=== PATIENT | female | born 1985 | race Caucasian/White ===

== ENCOUNTER → 2020-11-27 11:06 | Outpatient (CLI) | payer OTHER, SELFPAY ==
--- NOTE | ~2020-11-27 | CT_ITS ---
EXAMINATION: CT diagnostic chest wo con DATE: 11/27/2020 11:21 INDICATION: Solitary pulmonary nodule. TECHNIQUE: Computed tomography (CT) of the chest was performed without intravenous contrast. The dose -length product (DLP) was 50.12 mGy-cm. Automated exposure control and iterative reconstruction techn ique were employed. COMPARISON: None FINDINGS: There is a 7 mm groundglass nodule of the right lower lobe on image 93. There is a 4 mm sub pleural nodule of the right lower lobe on image 55. No focal airspace opacities are identified. There is no pleural effusion or pneumothorax. No pathologically enlarged thoracic lymph nodes are identifi ed. The heart size is normal. The visualized osseous structures are unremarkable. IMPRESSION: 1. Pulmonary nodules as described above, probably benign. Follow-up low-dose CT in 12 months is recom mended. Reviewed, dictated and finalized at location A. CONSERVATION SPECIALIST IMPRESSION: 1. Pulmonary nodules as described above, probably benign. Follow-up low-dose CT in 12 months is recommended.
--- NOTE | ~2020-11-27 | US_ITS ---
US thyroid INDICATION: Thyroid goiter TECHNIQUE: Real-time sonographic images of the thyroid gland were obtained. COMPARISON: No prior studies for comparison. FINDINGS: The right thyroid lobe measures 5.6 x 2 x 1.6 cm. The left thyroid lobe measures 5.7 x 2 x 1.7 cm. There is normal echotexture and echogenicity throughout the thyroid gland. No discrete nodul es identified. Normal vascular flow is present. IMPRESSION: 1. Enlarged thyroid gland without discrete mass. Reviewed, dictated and finalized at location B. R SITE ASSESSMENT SPECIALIST
== END ==
PROVIDERS: PCP Physician Assistant; Visit Provider Physician Assistant
DX: R91.1 Solitary pulmonary nodule (principal); R91.8 Other nonspecific abnormal finding of lung field
CPT/HCPCS: 71250; 76536

== ENCOUNTER 2021-04-22 17:14 | Emergency (ER) | payer OTHER, SELFPAY ==
[2021-04-22] VITALS (14 sets, daily range): BP systolic 107–127; BP diastolic 65–84; PULSE 90–93; RESP 16–18; O2SAT 99–100
[2021-04-22 18:20] LABS: Basophils Percent Auto 0.2 % (0.2-1.2); Eosinophils Percent Auto 0.2 % (0-4.4); Hematocrit 39.9 % (37.0-47.0); Hemoglobin 13.5 g/dL (12.0-15.0); Immature Granulocyte Absolute 0.04 K/mm3 (0.00-0.031); Immature Granulocyte Percent A 0.3 % (0-0.5); Lymphocytes Percent Auto 10.6 % (18.3-44.2); Mean Corpuscular HGB Conc 33.8 g/dl (32-36); Mean Corpuscular Hemoglobin 29.9 pg (26-34); Mean Corpuscular Volume 88.3 fl (80-100); Mean Platelet Volume 10.3 fl (7.4-10.4); Monocytes Absolute Auto 0.5 K/mm3 (0.1-0.6); Monocytes Percent Auto 4.3 % (2.6-8.5); Neutrophils Absolute Auto 10.4 K/mm3 (1.3-6.7); Neutrophils Percent Auto 84.4 % (45.5-73.1); Platelet Count Result 188 k/mm3 (150-375); Red Blood Count 4.52 M/mm3 (4.2-5.4); Red Cell Distribution Width 12.1 % (11.5-14.5); White Blood Count 12.3 K/mm3 (4.5-10.0)
--- NOTE | 2021-04-22 18:28 | PC.NURSE ---
Bedside preg. test was positive at 18:28
[2021-04-22 18:30] LABS: Alanine Aminotransferase 18 U/L (4-35); Albumin Level 4.6 g/dL (3.5-5.1); Alkaline Phosphatase 50 U/L (38-126); Anion Gap 9 mmol/L (8-16); Aspartate Amino Transferase 23 U/L (14-36); Bilirubin,Total 0.5 mg/dL (0.2-1.3); Blood Urea Nitrogen 10 mg/dL (7-17); Calcium 9.4 mg/dL (8.4-10.2); Carbon Dioxide 23 mmol/L (22-30); Chloride 105 mmol/L (98-107); Estimated CRCL calculation 118 ml/min; Estimated Glomerular Filt Rate > 60; Glucose 89 mg/dL (65-105); Lipase 66 U/L (23-300); Potassium 3.9 mmol/L (3.4-5.0); Sodium 137 mmol/L (137-145)
[2021-04-22 18:56] LABS: Add Urine Microscopic? YES; Appearance Urine Cloudy (Clear); Bacteria Urine Trace /hpf; Bilirubin Urine Negative (Negative); Blood Urine Negative (Negative); Color Urine Yellow (Yellow); Glucose Urine UA Negative (Negative); Ketones Urine 1+ mg/dL (Negative); Leukocyte Esterase Ur Negative LEU/UL (Negative); Mucus Urine Few /lpf; Nitrate Urine Negative (Negative); Protein Urine 1+ mg/dL (Negative); Specific Grav Ur 1.027 (1.001-1.035); Squamous Epithelial Cell Urine Moderate /hpf (Few); Urobilinogen Urine Negative mg/dL (<2.0)
[2021-04-22] MEDS: METOCLOPRAMIDE HCL INJ 10 MG/2 ML VIAL 5 MG IV PUSH (21:17)
[2021-04-22] MEDS: DEXTROSE 5%/LACTATED RINGERS 1,000 ML 999 ML IV CONT (21:17)
--- NOTE | 2021-04-22 21:55 | ED.GENADULT ---
HPI - General Adult General Chief complaint: Nausea/Vomiting/Diarrhea Stated complaint: nausea/vomiting, 7 weeks preg Time Seen by Provider: 04/22/21 20:45 Source: patient Mode of arrival: ambulatory Limitations: no limitations History of Present Illness HPI narrative: 35 4 para 2 presently 7 weeks here with complaints of nausea, vomiting for past few days. Patient states that she feels extremely weak and dizzy at times. She denies any vaginal bleeding or discharge. No history of fever or chills. Patient states that she was given Zofran but however was unable to take this morning as she was extremely nauseated. She also complains of lower abdominal cramping once in a while. Onset (ago): day(s) (2) Severity: moderate Exacerbating factors: none Associated symptoms: headaches Related Data Allergies Allergy/AdvReac Type Severity Reaction Status Date / Time prednisone AdvReac Agitated Verified 04/22/21 20:28 Review of Systems Review of Systems: All systems reviewed & are unremarkable except as noted in HPI and below Constitutional: Constitutional: Reports no additional constitutional complaints Eyes: Eyes: Reports no additional eye complaints ENT: Reports system reviewed and no additional complaints, except as documented Cardiovascular: Cardiovascular: Reports no additional cardiovascular complaints Respiratory: Respiratory: Reports no additional respiratory complaints Gastrointestinal: Gastrointestinal: Reports as per HPI Musculoskeletal: Musculoskeletal: Reports no additional musculoskeletal complaints PMFSH Social History Social History Gender identity (if verbalized by the patient): Female Exam Narrative: Exam Narrative: GENERAL: Well-appearing, well-nourished, and in no acute distress. HEAD: Normocephalic, atraumatic. EYES: PERRLA and EOMI. NECK: Supple. CHEST: Clear to auscultation. No respiratory distress. HEART: Regular rate and rhythm. No murmur heard. Normal peripheral pulses. ABDOMEN: Soft, nontender, nondistended, normal active bowel sounds. EXTREMITIES: Normal range of motion. No edema. SKIN: Warm, dry, no rash. NEURO: No focal deficits. Alert and oriented x3. PSYCH: Normal mood and affect. Course Course Emergency Course: Patient received 1 L of D5 LR, IV Reglan. After the fluids patient states that she is feeling much better. Headache is resolved. Advised her to continue Zofran, follow-up with her OB. She does feel comfortable going home. Vital Signs Vital signs: Vital Signs Pulse Rate 90 04/22/21 17:37 Respiratory Rate 18 04/22/21 17:37 Blood Pressure 127/84 04/22/21 17:37 Pulse Oximetry 100 04/22/21 17:37 Pulse Rate 93 04/22/21 20:25 Respiratory Rate 16 04/22/21 20:25 Blood Pressure 119/76 04/22/21 20:25 Pulse Oximetry 100 04/22/21 20:25 Medical Decision Making Vital Signs Vital Signs: Vital Signs Pulse Rate 90 04/22/21 17:37 Respiratory Rate 18 04/22/21 17:37 Blood Pressure 127/84 04/22/21 17:37 Pulse Oximetry 100 04/22/21 17:37 Pulse Rate 93 04/22/21 20:25 Respiratory Rate 16 04/22/21 20:25 Blood Pressure 119/76 04/22/21 20:25 Pulse Oximetry 100 04/22/21 20:25 Lab Data Result diagrams: 04/22/21 18:10 04/22/21 18:10 Labs: Lab Results 04/22/21 04/22/21 04/22/21 Range/Units 18:10 18:10 18:27 WBC 12.3 H (4.5-10.0) K/mm3 RBC 4.52 (4.2-5.4) M/mm3 Hgb 13.5 (12.0-15.0) g/dL Hct 39.9 (37.0-47.0) % MCV 88.3 (80-100) fl MCH 29.9 (26-34) pg MCHC 33.8 (32-36) g/dl RDW 12.1 (11.5-14.5) % Plt Count 188 (150-375) k/mm3 MPV 10.3 (7.4-10.4) fl Immature Gran % (Auto) 0.3 (0-0.5) % Neut % (Auto) 84.4 H (45.5-73.1) % Lymph % (Auto) 10.6 L (18.3-44.2) % Graham % (Auto) 4.3 (2.6-8.5) % Eos % (Auto) 0.2 (0-4.4) % Baso % (Auto) 0.2 (0.2-1.2) %
== END 2021-04-22 22:11 | disposition home or self-care (01) ==
PROVIDERS: Emergency Provider Family Medicine; PCP Physician Assistant
DX: O21.0 Mild hyperemesis gravidarum (principal); Z3A.01 Less than 8 weeks gestation of pregnancy
CPT/HCPCS: 36415; 80053; 81001; 83690; 85025; 96361; 96374; 99284; J2765; J7121

== ENCOUNTER 2023-02-09 12:44 | Outpatient (CLI) | payer OTHER, SELFPAY ==
--- NOTE | ~2023-02-09 | CT_ITS ---
CT Scan of the Chest without Contrast: Clinical Indication: Lung nodules Technique: Contiguous sections were acquired throughout the chest without intravenous contrast. Dose reduction technique was used on this scan by utilizing automated exposure control and iterative recon struction technique. The dose-length product (DLP) was 43.17 mGy-cm. COMPARISON: 11/27/2020 Findings: There is no evidence of any significant mediastinal, hilar or axillary lymphadenopathy. The mediastin al soft tissues appear normal. There is no evidence of pleural or pericardial effusion. Stable 5 mm probably semisolid pulmonary nodule at the peripheral right lower lobe (axial image 90). Stable 4 mm pleural-based nodule at the medial right lower lobe (axial image 55). Images through the upper abdomen reveal no abnormalities. Impression: Stable pulmonary nodules, as detailed above. Stability over this time interval suggests benignity. Reviewed, dictated and finalized at [facility]. Impression: Stable pulmonary nodules, as detailed above. Stability over this time interval suggests benignity.
--- NOTE | ~2023-02-09 | US_ITS ---
EXAMINATION: US thyroid DATE: 02/09/2023 13:55 INDICATION: Nontoxic goiter. TECHNIQUE: Multiple ultrasound images of the thyroid were obtained. COMPARISON: Ultrasound 11/27/2020 FINDINGS: The right thyroid lobe measures 5.7 x 1.7 x 2.1 cm. The left thyroid lobe measures 5.1 x 1.5 x 2.0 c m. There is normal echotexture and echogenicity throughout the thyroid gland. No discrete nodules id entified. Normal vascular flow is present. IMPRESSION: 1. Normal thyroid. Reviewed, dictated and finalized at location A. IMPRESSION: 1. Normal thyroid.
--- NOTE | ~2023-02-09 | MR_ITS ---
EXAMINATION: MR brain/brain stem wo/w con DATE: 02/09/2023 13:35 INDICATION: Headache. TECHNIQUE: Magnetic resonance imaging (MRI) of the brain and brainstem was performed without and with 13 mL MultiHance intravenous contrast. COMPARISON: None. FINDINGS: There are four foci of increased T2-weighted signal intensity in the cerebral white matter, which is normal for the patient's age. There is no intracranial hemorrhage, acute infarction, or abn ormal intracranial mass lesion. The ventricles are normal in size. The orbits are normal. The mastoid air cells are normal. The paranasal sinuses are clear. IMPRESSION: 1. Normal brain. Reviewed, dictated and finalized at location A. IMPRESSION: 1. Normal brain.
== END 2023-02-09 12:45 ==
PROVIDERS: PCP Physician Assistant; Visit Provider Physician Assistant
DX: R91.8 Other nonspecific abnormal finding of lung field (principal); E04.9 Nontoxic goiter, unspecified; R51.9 Headache, unspecified
CPT/HCPCS: 70553; 71250; 76536; A9577

== ENCOUNTER 2023-12-26 08:03 | Outpatient (CLI) | payer OTHER, SELFPAY ==
--- NOTE | ~2023-12-26 | US_ITS ---
Abdominal Sonogram: Real-time sonographic imaging of the abdomen was performed. Clinical History: Abdominal pain Findings: The liver appears normal with no evidence of mass lesion or bile duct dilatation. Main por arti vein demonstrates normal direction of flow. The spleen is normal in size without evidence of foca l lesion. The gallbladder is well distended, and appears normal with no evidence of gallstone or wal l thickening. The common bile duct measures 5 mm. The visualized pancreas, aorta, and IVC are unrema rkable. The right kidney measures 11.7 cm in length and the left kidney measures 11.5 cm. There is no hydronephrosis or renal calculus. Impression: Unremarkable abdominal ultrasound. Reviewed, dictated and finalized at location . Impression: Unremarkable abdominal ultrasound.
== END 2023-12-26 08:04 ==
PROVIDERS: PCP Physician Assistant; Visit Provider Physician Assistant
DX: R10.9 Unspecified abdominal pain (principal)
CPT/HCPCS: 76700

== ENCOUNTER 2024-06-12 07:49 | Outpatient (CLI) | payer OTHER, SELFPAY ==
--- NOTE | ~2024-06-12 | NM_ITS ---
EXAM: NM gastric emptying study DATE: 06/12/2024 12:47 INDICATION: Right upper quadrant abdominal pain TECHNIQUE: A gastric emptying study was performed using the methodology of Pito DAVID, et al. J Nucl Med 2007; 48:568-572. The patient was given a meal consisting of 2 scrambled eggs labeled with 0.911 mCi Tc-99m sulfur colloid, 2 slices of toast, two packages of jam, and approximately 120 mL of water . Simultaneous anterior and posterior 1-min images of the abdomen were obtained with the patient supi ne at multiple time points over a total period of 4 hours. The geometric mean of anterior and posteri or views was determined, and the percentage retention was calculated for each time point. COMPARISON: None. FINDINGS: Gastric retention of the radiotracer-labeled meal was 45%, 23%, and 4% at the 1-hour, 2-hour, and 4-h our time points, respectively. With this technique, apparent rapid gastric emptying is suggested by < 30% gastric retention at 1 hour. Delayed gastric emptying is defined by gastric retention of >90% at 1 hour, >60% retention at 2 hours, or >10% retention at 4 hours. IMPRESSION: 1. Normal gastric emptying. Reviewed, dictated and finalized at location A. IMPRESSION: 1. Normal gastric emptying.
== END 2024-06-12 07:50 | disposition home or self-care (01) ==
PROVIDERS: PCP Physician Assistant; Visit Provider Physician Assistant
DX: R10.11 Right upper quadrant pain (principal)
CPT/HCPCS: 78264; A9541

== ENCOUNTER 2024-06-14 08:49 | Outpatient (CLI) | payer OTHER, SELFPAY ==
--- NOTE | ~2024-06-14 | NM_ITS ---
EXAMINATION: NM hepatobiliary wo pharm DATE: 06/14/2024 11:49 INDICATION: Right upper quadrant abdominal pain COMPARISON: None. TECHNIQUE: 4.7 mCi Tc-99m mebrofenin (Choletec) was administered intravenously. Scintigraphic images of the abdomen were obtained for one hour. At the 1 hour time point, the patient drank 8 oz Ensure, and imaging was continued for 60 minutes. Gallbladder ejection fraction was calculated by the technol ogist. FINDINGS: There is normal clearance of radiotracer from the blood pool. There is homogeneous tracer u ptake by the liver. Activity progresses to the bowel and gallbladder. The gallbladder ejection fract ion (GBEF) is 29%. Note that with this technique, normal GBEF >= 33%. IMPRESSION: 1. Gallbladder ejection fraction below the normal range which could be seen with gallbladder dysfunc tion or chronic cholecystitis in the appropriate clinical setting. Reviewed, dictated and finalized at location A. IMPRESSION: 1. Gallbladder ejection fraction below the normal range which could be seen wi th gallbladder dysfunction or chronic cholecystitis in the appropriate clinical setting.
== END 2024-06-14 08:50 | disposition home or self-care (01) ==
LOC: ANHIMG 08:52
PROVIDERS: PCP Physician Assistant; Visit Provider Physician Assistant
DX: R93.2 Abnormal findings on diagnostic imaging of liver and biliary tract (principal); R10.11 Right upper quadrant pain
CPT/HCPCS: 78226; A9537

== ENCOUNTER 2024-11-15 08:59 | Outpatient (CLI) | payer OTHER, SELFPAY ==
--- NOTE | ~2024-11-15 | US_ITS ---
US right upper quadrant INDICATION: Right upper quadrant pain PROCEDURE: Realtime right upper abdominal ultrasound. COMPARISON: Ultrasound dated 12/26/2023 FINDINGS: The pancreas is normal without focal mass or pancreatic ductal dilation. Liver echotexture is normal without focal mass or intrahepatic biliary dilatation. There is normal directional flow i n the portal vein. The gallbladder is normal without stones, gallbladder wall thickening or pericholecystic fluid. Comm on bile duct measures 4 mm. No sonographic Skinner's sign. IMPRESSION: 1: Normal limited abdominal ultrasound. Reviewed, dictated and finalized at location A. NE MECHANIC
== END 2024-11-15 09:00 | disposition home or self-care (01) ==
LOC: GOSHIMG 09:00
PROVIDERS: PCP Surgery; Visit Provider Surgery
DX: R10.11 Right upper quadrant pain (principal); K21.9 Gastro-esophageal reflux disease without esophagitis; K82.8 Other specified diseases of gallbladder
CPT/HCPCS: 76705

== ENCOUNTER 2024-11-19 07:23 | Day surgery (SDC) | payer OTHER, SELFPAY ==
[2024-11-09 08:59] VITALS: BMI 21.7
--- NOTE | 2024-11-18 06:01 | P.PNAN_ITS ---
Anes - Initial Pre Proc Eval Procedure: Operation Date: 11/19/24 09:30 Proposed Procedures p Esophagogastroduodenoscopy - Tato López DO Date/Time: 11/18/24 06:01 Surgeon: Tato López DO Pre Op Diagnosis: Right Upper Quadrant Pain Patient Data Age: 39 Gender: F Height: 1.78 m Weight: 66 kg Allergies Allergy/AdvReac Type Severity Reaction Status Date / Time prednisone AdvReac Agitated Verified 11/19/24 08:24 Home Medications ?Medication ?Instructions ?Recorded ?Confirmed ?Type buspirone 5 mg tablet 5 mg PO BID 11/09/24 11/14/24 History escitalopram oxalate 5 mg tablet 5 mg PO DAILY 11/09/24 11/14/24 History (Lexapro) levomefolate 7.5 mg-algal oil 1 cap PO DAILY 11/09/24 11/14/24 History 90.314 mg capsule (L-Methylfolate Forte) hydroxyzine HCl 25 mg tablet 25 mg PO DIRECTED PRN anxiety 11/14/24 11/14/24 History Patient hx anesthesia problems: none Family hx anesthesia problems: none Results Review: All pre-operative results and documents have been reviewed as part of the pre- operative evaluation. [facility] Past Medical History Medical History (Updated 11/18/24 @ 06:01 by Benjamín Miller DO) Acid reflux Biliary dyskinesia Anxiety Family History Family History Other Hypertension Lung cancer Social History Social History (Updated 11/09/24 @ 08:28 by Alexandria Ferraro CMA) Smoking status: Current every day smoker Tobacco type: cigarettes Alcohol intake: former Do You Feel Safe in your Home?: Yes Lack of Transportation: No Lack of Food: Never True Current Housing: I Have Housing Concerned About Future Housing: No Difficulty Paying Gas/Electric Bills: No Difficulty Paying for Meds: No Currently Unemployed: No Education: Trade/Vocational Certificate Difficulty w/ Childcare or Family Care: No Living arrangements: with family Gender identity (if verbalized by the patient): Female Anes - Eval Final PreProcedure Day of Procedure 11/18/24 06:01 Patient weight: normal Heart: regular rate and rhythm Lungs: clear to auscultation and normal air movement Airway: Mallampati scale class II Neurological: alert and oriented Last oral intake: >/= 8 hours ASA classification: II Emergent: no Anesthetic plan: proceed Anesthesia type and monitoring: general GIVS and standard monitoring Results Review: All pre-operative results and documents have been reviewed as part of the pre- operative evaluation. Informed Consent: The patient's anesthetic plan and its attendant risks and benefits were discussed with the patient/family/POA. Questions were solicited and answers pr ovided to the satisfaction of the patient/family/POA.
--- OUTSIDE RECORDS SUMMARY | 2024-11-19 08:11 | XMS_ITS | Referral Summary ---
Author Organization [facility] Address [address] [place] [address] Care Team Providers Care Director Enterprise Sales Name Role Phone Unavailable Primary Care Provider Unavailabl e Source Comments [facility],non-owned Affiliates and Associated Physician Practices is amultiple site organization consisting of ambulatory clinics and hospital sitesin [place], [place], [place] and [place]. This disclosure is being madepursuant to the Care Everywhere program and may not contain all information available regarding this patient. Last updated 18.[facility] [employer] Social History Tobacco Use Types Packs/Day Years Used Date Smoking Tobacco: Never Assessed Sex and Gender Information Value Date Recorded Sex Assigned at Not on file Gender Identity Not on file Sexual Orientation Not on file Plan of Treatment Not on file
--- OUTSIDE RECORDS SUMMARY | 2024-11-19 08:11 | XMS_ITS | Patient Health Summary ---
Author Organization [facility] Address [address] [place] [address] Care Team Providers Care Technical Supervisor Name Role Phone Unavailable Primary Care Provider Unavailabl e Note from [facility],non-owned Affiliates and Associated Physician Practices is amultiple site organization consisting of ambulatory clinics and hospital sitesin [place] and [place]. This disclosure is being madepursuant to the Care Everywhere program and may not contain all information available regarding this patient. Last updated 18.[facility] Social History Tobacco Use Types Packs/Day Years Used Date Smoking Tobacco: Never Assessed Sex and Gender Information Value Date Recorded Sex Assigned at Not on file Gender Identity Not on file Sexual Orientation Not on file Procedures * FIBRONECTIN(Performed 12/20/2013) Performed for Supervision of other normal (HCC) Results * FIBRONECTIN (12/20/2013 12:01 PM STOCK COUNTER) Fibronectin Negative Negative 12/20/2013 12:40 PM STOCK COUNTER [facility] Fluid ENTIRE VAGINA / Unknown Collection / Unknown 12/20/2013 12:01 PM STOCK COUNTER 12/20/2013 12:01 PM STOCK COUNTER Narrative [facility] - 12/20/2013 12:40 PM STOCK COUNTER FFN COMMENT: Positive - Indicates the presence of secretions that will result in delivery in less than or equal to 7 to 14 days from collection in symptomatic women. ? Negative - Indicates the absence of secretions that will result in delivery in less than or equal to 7 to 14 days from collection in symptomatic women. Indeterminate - The specimen does not meet internal acceptance on the initial and repeat testing. ? The Rapid fFN result should not be interpreted as absolute evidence for the presence or absence of a process that will result in delivery in less than or equal to 7 to 14 days from specimen collection in symptomatic women or delivery in less than or equal to 34 weeks, 6 days in asymptomatic women evaluated between 22 weeks, 0 days and 30 weeks, 6 days of gestation. ?? A positive fFN result may be observed for patients who have experienced cervical disruption caused by, but not limited to, events such as sexual intercourse, digital cervical examination, or vaginal probe ultrasound. The Rapid fFN result should always be used inconjuction with information available from the clinical evaluation of the patient and other diagnostic procedures such as cervical examination, cervical microbiological culture, assessment of uterine activity, and evaluation of other risk factors. ??Patients taking S-suhkuedw-hspgznfiiv may show falsely elevated levels of Homocysteine. ??Patients taking methotrexate, nicotinic acid, theophylline, nitrous oxide, or L-dopa can have falsely elevated Homocysteine levels. Heterophilic antibodies in human serum can react with reagent immunoglobulins, interfering with in vitro immunoassays. Patients routinely exposed to animals or to animal serum products can be prone to this interference and anomalous values may be observed. Additional information may be required for diagnosis. Lilia Wilde MD LAB - BODY FLUID ORD ERABLES [facility] [address] [place] [address]
--- OUTSIDE RECORDS SUMMARY | 2024-11-19 08:11 | XMS_ITS | Encounter Summary ---
Author Organization [facility] Address [address] [place] [address] Care Team Providers Care Legal Clerk Name Role Phone Alba Christian Primary Care Pr ovider Encounter Details Date Type Department Care Team (Late st Contact Info) Description 01/07/2022 Telephone [facility] [place] [address] Alexandria Parekh, RN Social History Tobacco Use Types Packs/Day Years Used Date Smoking Tobacco: Former Smokeless Tobacco: Never [place] Depression Scale Answer Date Recorded [place] Depression Scale Total 5 12/05/2021 The thought of harming myself has occurred to me . 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 Pt describes an area that is red and sore on her right breast. She has been applying warm compress and gently massaging affected area with a small hand held massage device today. Recommended nursing baby onthe affected side frequently and letting baby empty the breast. Also, positioning baby's chin or nose towards the area of the lump. Reviewed signs and symptoms of mastitis. Recommended calling her OB if she has above symptoms. Suggested taking Lecithin for persistent clogged ducts as mom has a hx of mastitis with first child. documented in this encounter Plan of Treatment Not on file documented as of this encounter Visit Diagnoses Not on filedocumented in this encounter Care Teams Legal Clerk Relationship Specialty Start Date End Date Alba Christian PA PCP - General Physician Wood Shingle Roofer 08/12/21 documented as of this encounter
--- OUTSIDE RECORDS SUMMARY | 2024-11-19 08:11 | XMS_ITS | Clinical Summary ---
Author Organization [facility] Address [address] [place] [address] Care Team Providers Care Used Car Sales Supervisor Name Role Phone Anahi Alba GRADY Primary Care Pr ovider Allergies Active Allergy Reactions Criticality Noted Date Comments Prednisone Other (See comments) Low 08/12/2021 Patient says it makes her crazy Medications No known medications Active Problems Problem Noted Date Diagnosed Date 39 weeks gestation of 12/04/2021 Immunizations Name Administration Dates Next Due Tdap 12/18/2016 Medical History Medical History Date Comments Anxiety depression Herpes Possibly negativ e (blood tests don't support diagnosis) Social History Tobacco Use Types Packs/Day Years Used Date Smoking Tobacco: Former Smokeless Tobacco: Never Tobacco Cessation:Counseling Given: Not Answered AUDIT-C Answer Date Recorded Q1: How often do you have a drink containing alc ohol? Monthly or less 04/13/2022 Q2: How many drinks containi ng alcohol do you have on a typical day when you are drinking? 1 or 2 04/13/2022 Q3: How often do you have si x or more drinks on one occasion? Less than monthly 04/13/2022 [place] Depression Scale Answer Date Recorded [place] Depression Scale Total 5 12/05/2021 The thought of harming myself has occurred to me . 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 Gender Identity Not on file Sexual Orientation Not on file Obstetrics History Para Term AB IAB SAB Ectopic Multiple Livin g Live Births 4 3 3 1 1 0 3 3 Date Outcome GA Total Labor Labor/2nd/3rd Weight Sex Type Anes PTL Julia A1 A5 Name Clin 2013 Term F Vag-S pont 2015 SAB 2016 Term M Vag-S pont 2021 Term 39w 3d 2h 03m 1h 31m/0h 29m/0h 03m 3.96 kg (8 lb 11.7 oz) M Vag-S pont Epidur al N Livin g 8 9 JERRELL HENDERSON Jennif er Helene, MD Complications:None Delivery Location:This Facil [facility]y ([facility]) Last Filed Vital Signs Vital Sign Reading Time Taken Comments Blood Pressure 126/84 07/24/2024 1:49 PM CDT Pulse 82 01/26/2024 9:20 AM CDT Temperature 36.8 ??C (98.3 ??F) 01/26/2024 9:20 AM CD T Respiratory Rate 18 01/26/2024 9:20 AM CDT Oxygen Saturation 98% 01/26/2024 9:20 AM CDT Inhaled Oxygen Concentration - - Weight 64.9 kg (143 lb) 07/24/2024 1:49 PM CDT Height 177.8 cm (5' 10 ) 01/26/2024 9:20 AM CDT Body Mass Index 20.52 01/26/2024 9:20 AM CDT Plan of Treatment Health Maintenance Due Date Last Done Comments Depression Screening 1987 Hepatitis C Screening 1987 Varicella Vaccines (1 of 2 - 13+ 2-dose series) 2000 Hepatitis B Screening 2005 Covid-19 Vaccine (3 - 2023-2 5 season) 2024 10/06/2021, 07/18/2021 Influenza Vaccine (#1) 2024 08/02/2017 Regular Well Visit/Exam 18-64 07/24/2025 07/24/2024 DTaP/Tdap/Td Vaccine (2 - Td or Tdap) 12/18/2026 12/18/2016 Cervical Cancer Screening 07/24/2027 07/24/2024 HPV Vaccines Aged Out No longer eligi ble based on patient's age to complete this topic Pneumococcal vaccine <65 Aged Out No longer eligible based on patient's age to complete this topic Procedures Procedure Name Priority Date/Time Associated Diagnosis Comments PAP AND HPV, REFLEX TO HPV GENOTYPES Routine 07/24/2024 3:32 AM CDT Cervical cancer screening from Last 3 Months or Most Recently Relevant to Health Maintenance Results * Pap and HPV, reflex to HPV Genotypes (07/24/2024 3:32 AM CDT) Clinical indication Comment [facility] - 01 Comment: NEGATIVE FOR INTRAEPITHELIAL LESION OR MALIGNANCY. CELLULAR CHANGES ASSOCIATED WITH INFLAMMATION ARE PRESENT. THIS SPECIMEN WAS RESCREENED PART OF OUR SHALE PROCESSING TECHNICIAN PROGRAM. Specimen adequacy: Comment [facility] - 01 Comment: Satisfactory for evaluation. ??Endocervical and/or squamous metaplastic cells (endocervical component) are present. Clinician provided ICD10 Comment [facility] - 01 Comment:Z12.4 Performed by Comment [facility] - 01 Comment:Anthony Rosas Cy totechnologist (ASCP) QC reviewed by Comment [facility] - 01 Comment:Jessi Braxton, Cyto technologist . . [facility] - 01 Note: Comment [facility] - 01 Comment: The Pap smear is a screening test designed to aid in the detection of premalignant and malignant conditions of the uterine cervix. ??It is not a diagnostic procedure and should not be used as the sole means of detecting cervical cancer. ??Both false-positive and false-negative reports do occur. Test methodology Comment [facility] - 01 Comment: This liquid based ThinPrep(R) pap test was screened with the use of an image guided system. HPV Aptima Negative Negative [facility] 02 Comment: This nucleic acid amplification test detects fourteen high-risk HPV types (16,18,31,33,35,39,45,51,52,56,58,59,66,68) without differentiation. HPV Genotype Reflex Comment [facility] - 01 Comment:Criteria not met, HP V Genotype not performed. Thin prep-Endocervical 07/24/2024 3:32 AM CDT 07/24/2024 Narrative [facility] - 07/30/2024 2:09 PM CDT Performed at: ??01 - [facility] [address] [place], [place] ??[id number] Customer Strategy Manager: Maura Pascual MD, Phone: ??[phone] Performed at: ??02 - [facility] [address] [place], [place] ??[id number] Customer Strategy Manager: Maura Pascual MD, Phone: ??[phone] Specimen Comment: Source.............Cervix;Endocervix Specimen Comment: No. of containers..01 ThinPrep Vial Anita Cornelius MD LAB CYTOLOGY ORDERABLES Final Result [facility] - 01 [facility] 02 from Last 3 Months or Most Recently Relevant to Health Maintenance Insurance [employer] OPEN ACCESS AKT OPEN ACCESS CIGNA OPEN ACCESS CIGNA OPEN ACCESS Advance Directives For more information, please contact: [phone] * Full Code (Latest Code Status on File) Date Activated Date Inactivated Comments 12/04/2021 7:18 AM 12/05/2021 6:36 PM * Full Code Date Activated Date Inactivated Comments 12/03/2021 6:41 PM 12/04/2021 7:18 AM Full CPR in case of cardiopulmonary arrest Care Teams Used Car Sales Supervisor Relationship Specialty Start Date End Date Alba Christian PA PCP - General Physician Eligibility Technician 08/12/21
--- OUTSIDE RECORDS SUMMARY | 2024-11-19 08:11 | XMS_ITS | Clinical Summary ---
Author Organization [facility] Address [address] [place] [address]. [place] [address] [place] [address] Care Team Providers Care Cargo And Ramp Services Manager Name Role Phone Faina Pete MD Primary Care Provider [phone] Allergies No known active allergies Medications sertraline 100 MG tablet Take 100 mg by mouth daily. Active ondansetron 4 MG disintegrating tablet Take 1 tablet (4 mg total) by mouth every 8 (eight) hours as needed. 10 tablet 8 Active Family History Medical History Relation Comments Diabetes Father Relation Status Comments Father Social History Tobacco Use Types Packs/Day Years Used Date Smoking Tobacco: Never Smokeless Tobacco: Never Alcohol Use Standard Drinks/Week Comments No 0 (1 standard drink = 0.6 oz pur e alcohol) Comments No Sex and Gender Information Value Date Recorded Sex Assigned at Not on file Legal Sex Female 2:50 PM CDT Gender Identity Not on file Sexual Orientation Not on file Last Filed Vital Signs Vital Sign Reading Time Taken Comments Blood Pressure 153/97 03/03/2018 2:55 PM CDT Pulse 100 03/03/2018 4:26 PM CDT Temperature 36.2 ??C (97.2 ??F) 03/03/2018 2:55 PM CD T Respiratory Rate 22 03/03/2018 2:55 PM CDT Oxygen Saturation 97% 03/03/2018 2:55 PM CDT Inhaled Oxygen Concentration - - Weight 63.5 kg (140 lb) 03/03/2018 2:55 PM CDT Height 177.8 cm (5' 10 ) 03/03/2018 2:55 PM CDT Body Mass Index 20.09 03/03/2018 2:55 PM CDT Plan of Treatment Health Maintenance Due Date Last Done Comments Cervical Cancer Screening Pa p Smear (Age 30 to 64) Every 3 Years 1987 Annual Physical 1990 Hepatitis C 2005 DTaP, Tdap and Td Vaccines ( 1 - Tdap) 2006 Hepatitis B Vaccines (1 of 3 - 19+ 3-dose series) 2006 Cervical Cancer Screening Pa p with HPV Testing (Age 30 to 64) Every 5 Years 2017 Cervical Cancer Screening with HPV 2017 COVID-19 Vaccine (2023-2 5 season) 2024 Influenza Adult (#1) 2024 HPV Vaccines Aged Out No longer eligi ble based on patient's age to complete this topic Meningococcal B Vaccine Aged Out No l onger eligible based on patient's age to complete this topic Meningococcal Vaccine Aged Out No jessie deven eligible based on patient's age to complete this topic Pneumococcal Vaccine: Pediat rics (0 to 5 Years) and At-Risk Patients (6 to 64 Years) Aged Out No longer eligible b ased on patient's age to complete this topic RSV Immunizations Under 20 Months Aged Out No longer eligible based on patient's age to complete this topic [place] [address] [place] [address] Care Teams Cargo And Ramp Services Manager Relationship Specialty Start Date End Date Faina Pete MD PCP - General INTERNAL MEDICINE 03/03/18
--- OUTSIDE RECORDS SUMMARY | 2024-11-19 08:11 | XMS_ITS | Referral Summary ---
Author Organization [facility] Address [address] [place] [address] Care Team Providers Care Taste Tester Name Role Phone Marlopedrito Alba GRADY Primary Care Pr ovider Allergies Active Allergy Reactions Criticality Noted Date Comments Prednisone Other (See comments) Low 08/12/2021 Patient says it makes her crazy Medications No known medications Active Problems Problem Noted Date Diagnosed Date 39 weeks gestation of 12/04/2021 Immunizations Name Administration Dates Next Due Tdap 12/18/2016 Social History Tobacco Use Types Packs/Day Years [...] on one occasion? Less than monthly 04/13/2022 [place] Depression Scale Answer Date Recorded [place] Depression Scale Total 5 12/05/2021 The thought of harming myself has occurred to me . 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 Specimen adequacy: Comment [facility] - 01 Comment: Satisfactory for evaluation. ??Endocervical and/or squamous metaplastic cells (endocervical component) are present. Clinician provided ICD10 Comment [facility] - 01 Comment:Z12.4 Performed by Comment [facility] - 01 Comment:Asad Jackson totechnologist (ASCP) QC reviewed by Comment [facility] [...] PM CDT Performed at: ??01 - [facility] [address] ??[id number] Insulation Foreman: Maura Pascual MD, Phone: ??[phone] Performed at: ??02 - [facility] [address] ??[id number] Insulation Foreman: Maura Pascual MD, Phone: ??[phone] Specimen Comment: Source.............Cervix;Endocervix Specimen Comment: No. of containers..01 ThinPrep Vial Anita Cornelius MD LAB CYTOLOGY ORDERABLES Final Result [facility] - 01 [facility] 02 from Last 3 Months or Most Recently Relevant to Health Maintenance Insurance [employer] OPEN ACCESS CIGNA OPEN ACCESS CIGNA OPEN ACCESS CIGNA OPEN ACCESS Advance Directives For more information, please contact: [phone] * Full Code (Latest Code Status on File) Date Activated Date Inactivated Comments 12/04/2021 7:18 AM 12/05/2021 6:36 PM * Full Code Date Activated Date Inactivated Comments 12/03/2021 6:41 PM 12/04/2021 7:18 AM Full CPR in case of cardiopulmonary arrest Care Teams Taste Tester Relationship Specialty Start Date End Date Alba Christian PA PCP - General Physician Owner Spa Director 08/12/21
--- OUTSIDE RECORDS SUMMARY | 2024-11-19 08:11 | XMS_ITS | Data Portability ---
Author Organization [facility], Telehealth (patients home) Address [address] [place] [address] Assessment Encounter Date Assessment Date Assessment LastModified by Organization Details LastModified Time 07/24/2024 07/24/2024 Vidhya is here for anxiety and depression. PHQ9=7 mild GAD7=21 severe [email or web address] Not available 07/24/2024 11:43:42 08/21/2024 08/21/2024 Met with Vidhya today to follow up on mdd, anxiety and ocd PHQ9=7 GAD7=13 Not available 08/21/2024 13:55:43 09/18/2024 09/18/2024 Met with Vidhya lazar to follow-up on MDD, PURA and OCD PURA 7=12 moderate PHQ 9 = 6 mild [email or web address] Not available 09/18/2024 11:45:03 11/05/2024 11/05/2024 Met with Vidhya today to follow-up on her PURA, OCD and mild recurrent MDD PHQ-9 = 10 moderate PURA-7 = 17 severe [email or web address] Not available 11/05/2024 13:46:29 Plan of Treatment Reminders Order Date Submit Date Provider Last Modified By Organization Details Last Modified Time Details Appointments Psychiatr ic Follow up 2024 09:45A Lucho Henderson Not available Not available Not available Lab None recorded. Referral None recorded. Procedures None recorded. Surgeries None recorded. Imaging None recorded. Medication Orders Zoloft 25 mg tablet 2023 024 [facility] #[id number], [address], [place], [place], [id number], 07/24/2024 12:47:15 hydroxyzi ne HCl 25 mg tablet 2023 024 [facility] #[id number], [address], [id number], 07/24/2024 12:49:52 Zoloft 50 mg tablet 2023 024 [facility] #[id number], [address] [facility] [address] [place] [address], [id number], 08/21/2024 11:45:09 Lexapro 10 mg tablet 2023 024 [facility] #[id number], [address] [facility] [address] [place] [address], [id number], 09/18/2024 11:53:10 buspirone 5 mg tablet 2024 025 [facility] #[id number], [address] [place] [address], [id number], 11/05/2024 12:06:38 Patient TargetsNo targets recorded. Patient Instructions Encounter Date Encounter Id Patient Instructions Last Modified By Organization Details Last Modified Time 07/24/2024 [id number] depression treatment: care instructions [email or web address] Not available 07/24/2024 12:13:05 obsessive-compul s gely disorder: care instructions Not available 07/24/2024 12:26:00 08/21/2024 [id number] obsessive-compul s gely disorder: care instructions [email or web address] Not available 08/21/2024 11:45:03 09/18/2024 [id number] depression treatment: care instructions [email or web address] Not available 09/18/2024 11:53:04 obsessive-compul s gely disorder: care instructions [email or web address] Not available 09/18/2024 11:53:04 Interested in ADHD testing. Discussed evaluation for ADHD after October, when we start objective testing in the office [email or web address] Not available 09/18/2024 11:52:40 11/05/2024 [id number] obsessive-compul s gely disorder: care instructions [email or web address] Not available 11/05/2024 12:06:30 Reason for Referral None Reported. Problems Name Problem SNOMED Code Status Onset Date Resolution Date Notes Provider Name and Address Organization Details Recorded Time Generalized anxiety disorder 25100019 Active 2023 Saniya Henderson CNM, [facility] [address], [place], [address], [facility] 4 11:37:48 Mild recurrent major depression 98033511 Active 2023 Saniya Henderson CNM, [facility] [address], [place], [address], [facility] 4 11:40:07 Obsessive-co mpulsive disorder 235954560 Active 2023 Saniya Henderson CNM, [facility] [address], [place], [address], [facility] 4 12:24:28 Problem Notes None recorded. Medical Equipment None Reported. Allergies Allergen ID Allergen Name Allergen Category Reaction Reaction Severity Criticality Documentation Date Start Date Code Code System Note Provider Name and Address Organization Details Recorded Time 1206 prednison e medicatio n Not available Not available Not available 07/24/2024 8640 RxNorm Georgia Santoro [facility] 4 10:14:18 Medications Name Sig Start Date Stop Date Status Note LastModified by Organization Details LastModified Time cyclobenzaprine 10 mg tablet active Not Available Not Available Not Available buspirone 5 mg tablet TAKE 1 TABLET BY MOUTH TWICE DAILY active Not Available Not Available No t Available sertraline 25 mg tablet TAKE 1 TABLET BY MOUTH EVERY DAY active Not Available Not Available No t Available hydroxyzine HCl 25 mg tablet TAKE 1 TABLET BY MOUTH THREE TIMES DAILY NEEDED FOR ANXIETY active Not Available Not Available No t Available methylphenidate ER 18 mg tablet,extended release 24 hr TAKE 1 TABLET BY MOUTH EVERY DAY active Not Available Not Available No t Available sertraline 50 mg tablet TAKE 1 TABLET BY MOUTH EVERY DAY active Not Available Not Available No t Available escitalopram 10 mg tablet Take 1 tablet every day by oral route. active Not Available Not Available No t Available atomoxetine 40 mg capsule TAKE 1 CAPSULE BY MOUTH EVERY MORNING. SWALLOW WHOLE active Not Available Not Available No t Available Vitals Date Recorded Body height Body mass index (BMI) Body weight Systolic blood pressure Diastolic blood pressure Provider Name and Address Organization Details Last Updated DateTime 07/24/2024 177.8 cm 21.4 kg/m2 42901.26 g 135 mm[Hg] 78 mm[Hg] Georgia Santoro [facility] 4 10:13:45 Date Recorded Body height Body mass index (BMI) Body weight Systolic blood pressure Diastolic blood pressure Provider Name and Address Organization Details Last Updated DateTime 08/21/2024 177.8 cm 21.1 kg/m2 67821.08 g 115 mm[Hg] 76 mm[Hg] Georgia Santoro [facility] 4 11:25:15 Date Recorded Body height Body mass index (BMI) Body weight Heart rate Systolic blood pressure Diastolic blood pressure Provider Name and Address Organization Details Last Updated DateTime 4 177.8 cm 21.1 kg/m2 80979.0 8 g 84 /min 114 mm[Hg] 75 mm[Hg] Georgia Santoro [facility] 4 10:58:59 Date Recorded Body height Body mass index (BMI) Body weight Heart rate Systolic blood pressure Diastolic blood pressure Provider Name and Address Organization Details Last Updated DateTime 5 177.8 cm 20.8 kg/m2 70328.8 9 g 76 /min 120 mm[Hg] 76 mm[Hg] Georgia Santoro [facility] 5 11:34:25 Social History Question Answer Notes LastModified by Organizat ion Details LastModified Time Tobacco Smoking Status Current Some Day Smoker [facility] 07/24/2024 10:18:31 What Is Your Level Of Alcohol Consumption? Moderate [email or web address] Information not available 07/24/2024 How Many Times Per Week Do You Consume Alcohol? 5-7 Times Per Week States A Glass Of Wine A Day Information not available 07/24/2024 What Is Your Level Of Caffeine Consumption? Moderate [email or web address] Information not available 07/24/2024 Are There Any Guns Present In Your Home? No [email or web address] Information not available 07/24/2024 Do You Feel Safe In Your Home? Yes [email or web address] Information not available 07/24/2024 Do You Feel Stressed (tense, Restless, Nervous, Or Anxious, Or Unable To Sleep At Night)? [id number] [email or web address] Information not available 07/24/2024 Do You Use Any Illicit Or Recreational Drugs? No [email or web address] Information not available 07/24/2024 Do You Or Have You Ever Used Any Other Forms Of Tobacco Or Nicotine? No [email or web address] Information not available 07/24/2024 Do You Have Any Future Plans To Get ? No, I Don't Want To Become [email or web address] Information not available 07/24/2024 Sex: Unknown Functional Status Question Answer Note LastModified by Organization D etails LastModified Time What is your exercise level? None [email or web address] Information not available 07/24/2024 Mental Status None recorded. Family History Relationship Description Onset Age of this Age Resolved Age Notes LastModified by Organization Details LastModified Time Maternal Grandmother Malignant tumor of lung [email or web address] Not available 2023 10:16:42 Paternal Grandmother Heart disease [email or web address] Not available 2023 10:16:50 Mother Hypertensive disorder [email or web address] Not available 2023 10:17:03 Medical History Condition Response Anxiety Disorder Y ADD/ADHD Y Gynecological History Statement/Question Response Menses Monthly Y HPV Vaccine N Abnormal Pap N Date of Last Pap Smear Current Control Method None Date of LMP 07/05/2024 Obstetrics History GPAL:G 4 P 3 0 1 0 Type Value Full Term 3 Spontaneous 1 Total 4 Past Encounters Encounter ID Performer Location Encounter Start Date Encounter Closed Date Diagnosis/Indication Diagnosis SNOMED-CT Code Diagnosis ICD10 Code Diagnosis Note [id number] Saniya Henderson CNM, PMHNP- Main Office [address] [place] [address] 07/24/2024 10:08:55 07/25/2024 10:58:46 Generalized anxiety disorder 91252203 F41.1 zoloft 25mg daily at hshydroxyz ine 25mg 1/2 tab- 1 tab. up to 3 times a daywill consider starting buspar 5mg twice a day at a later visitconti nue to meet with the therapist- Dearing from [facility] every 2 weeksrt 4 weeks Mild recur rent major depression 43160349 F33.0 start zoloft 25mg daily Obsessive- compulsive disorder 129838574 F42.9 start zoloft 25mg dailythera py every 2 weeks with Winter [id number] Saniya Henderson CNM, [facility] Main Office [address] [place] [address] 08/21/2024 11:22:18 08/22/2024 10:50:11 Generalized anxiety disorder 52022149 F41.1 increase zoloft to 50mg daily at hshydroxyz ine 25mg 1/2 tab- 1 tab. up to 3 times a day - has not needed to use a dosecontin ue to meet with the therapist- Dearing from [facility] every 2 weeksrt 4 weeks Obsessive- compulsive disorder 819563765 F42.9 zoloft 50mg dailythera py every 2 weeks with Winter Mild recur rent major depression 42604884 F33.0 increase to zoloft 50mg daily [id number] Saniya Henderson CNM, [facility] Main Office [address] [place] [address] 09/18/2024 10:52:42 09/19/2024 10:37:56 Generalized anxiety disorder 45334948 F41.1 stop zoloft to 50mg daily, start Lexapro 10mghydrox yzine 25mg /2 tab- 1 tab. up to 3 times a day as neededcont inue to meet with the therapist- D[facility] from [facility] every 2 weeksrt 4 weeks Obsessive- compulsive disorder 995429292 F42.9 switch from zoloft 50mg to Lexapro 10mg.thera py every 2 weeks with Winter Mild recur rent major depression 05735122 F33.0 stop zoloft 50mg daily [id number] Saniya Henderson CNM, [facility] Main Office [address] [place] [address] 11/05/2024 11:30:57 11/06/2024 09:50:44 Mild recurrent major depression 62247575 F33.0 start Lexapro 5mg (has lexapro 10mg tablets at home) will take 1/2 tab daily Generalize d anxiety disorder 05630792 F41.1 start Lexapro 5mg (has lexapro 10mg tablets at home) will take 1/2 tab dailyhydro xyzine 25mg 1/2 tab- 1 tab. up to 3 times a day as neededbusp ar 5mg twice daily. may take mid day dose if neededcont inue to meet with the therapist- Winter from [facility] every 2 weeksrtc3- 4 weeks Obsessive- compulsive disorder 895033322 F42.9 Lexapro 5mg dailythera py every 2 weeks with Winter Health Concerns Section Related Observation LastModified by Organization Detai ls LastModified Time None Recorded Concern Status LastModified by Organization Details LastModified Time None Recorded Advance Directives Directive None Recorded Payers Encounter Date Sequence Insurance Name Policy Number Policy Kennedy Covered Member ID Kennedy Member ID Guarantor Name 07/24/2024 1 [facility] [id number] Vidhya Henderson [id number] Vidhya Henderson 08/21/2024 1 [facility] [id number] Vidhya Henderson [id number] Vidhya Henderson 09/18/2024 1 [facility] [id number] Vidhya Henderson [id number] Vidhya Henderson 11/05/2024 1 [facility] [id number] Vidhya Henderson [id number] 2 Vidhya Henderson Notes Date Note Type Note Provider Name and Address Organization Details Recorded Time 07/24/2024 text/html Met with Vidhya today for psychiatric evaluation. Vidhya has a history of anxiety, ADHD which was diagnosed at the age of 32 and anxiety. 99% of just because anxiety revolves around her health. Vidhya is currently not taking any medications for psychiatric issues. She has done several medication trials in the past with Zoloft (has worked the best for her in the past), Prozac, BuSpar, Wellbutrin. She is presently seeing Winter at [facility] counseling every 2 weeks. No history of suicide attempts or self-harm. No psychiatric hospitalizations. No history of physical, emotional, or sexual abuse. Vidhya does admit to drinking 1-2 white claws a night. Denies any drug use.Vidhya states her mood to be good. Denies any feelings of worthlessness, hopelessness, or helplessness. Does tend to isolate, a little more introverted. Denies any SI or HI. Denies any auditory hallucinations or visual hallucinations. Appetite is good. Sleep? no issues falling asleep or staying asleep. Getting 6 to 7 hours of sleep at night. Energy level remains low.Vidhya lives with her Rui and their 3 kids, ages 10, 7, 2 years of age. 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 Lists her and her mom is her support. Family psychiatric history? half sister? depression, anxiety, ADHD. Father? cocaine addiction years ago. Completed suicides within the family? maternal uncle, cousin on paternal side, great grandfather on the paternal side. Saniya Henderson CNM, [facility]- [address], [place], [address], [facility] 07/24/2024 12:26:02 08/21/2024 text/html met with Vidhya today. Discussed feeling better, still very overwhelmed. Denies feelings of worthlessness, hopelessness, and helplessness. Sleep is pretty good, no problems falling asleep, no problems staying asleep. Getting 7 and a half hours of sleep at night. Denies any SI or HI. Denies any auditory hallucinations or visual hallucinations. I am still struggling with ADHD symptoms. Sisters are on Strattera and doing well with that. Vidhya will also bring in her GeneSight testing at next visit. Saniya Henderson CNM, [facility]- [address], [place], [address], [facility] 08/21/2024 13:56:20 09/18/2024 text/html Met with Vidhya today to follow-up with her anxiety and MDD. Vidhya states she is not doing well with the Zoloft since the first week on the increased dosage she was very fatigued, and since then she feels like it is not really helping with her anxiety. States her mood to be pretty good, a little irritable. Denies any feelings of worthlessness, hopelessness, helplessness. States her appetite is normal. Sleep? the past few nights has been waking up through the night with difficulty falling back to sleep. Denies any problems falling asleep. Getting 6 to 7 hours of sleep at night. Denies any SI or HI. Denies any auditory hallucinations or visual hallucinations. Saniya Henderson CNM, [facility]- [address], [place], [address], [facility] 09/18/2024 11:54:31 11/05/2024 text/html Met with Vidhya today to follow-up on her MDD, PURA and OCD. Also following up on her titration from Zoloft to Lexapro. Vidhya has stopped the Zoloft after her last visit but had not started the Lexapro she did try Lexapro on 1 day and stated the next day feeling very tearful and not feeling well so stopped taking at that point in time. Vidhya is feeling an increase in her depression and anxiety, feeling like it is more seasonal depression due to being trapped in her house due to the snow and cold weather, and everyone in her house has been sick with COVID her GI bugs and her mom's been sick. She denies any feelings of worthlessness, hopelessness, or helplessness but does state that she is feels like is just not going to get better. Sleep has been pretty good. Denies any SI or HI. Denies any auditory hallucinations or visual hallucinations. Last saw Winter at [facility] week. Seeing Winter 1-2 times a month. Vidhya is interested in starting the Lexapro at 5 mg to see if that is helpful. Saniya Henderson CNM, [facility]- [address], [place], [address], [facility] 11/05/2024 13:59:06 OBGyn Episode No OBEpisode recorded.
--- OUTSIDE RECORDS SUMMARY | 2024-11-19 08:11 | XMS_ITS | Data Portability ---
Author Organization [place] [facility] [employer], Main Office Address [address] [place] [address] Assessment No assessment recorded. Plan of Treatment Reminders Order Date Submit Date Provider Last Modified By Organization Details Last Modified Time Details Appointments None recorded. Lab TSH + free T4, serum 2022 023 [facility], [address], [place], [address], 3 05:01:27 lipid panel, serum 2022 023 [facility], [address], [place], [address], 3 05:01:27 CBC w/ auto diff 2022 023 [facility], [address], [place], [address], 3 05:01:27 CMP, serum or plasma 2022 023 [facility], [address], [place], [address], 3 05:01:27 iron + TIBC + ferritin, serum 2022 023 [facility], [address], [place], [address], 3 05:01:27 vitamin B12 + folate, serum or blood 2022 023 [facility], [address], [place], [address], 3 05:01:27 HbA1c (hemoglobi n A1c), blood 2022 023 [facility], [address], [place], [address], 3 05:01:27 Referral None recorded. Procedures None recorded. Surgeries None recorded. Imaging US, thyroid 2022 023 [facility], [address], [address], [place], [address], 3 08:50:06 MRI, brain, w/wo contrast - Approved [id number] 02/03/2023 - 3 2022 023 [facility], [address], [address], [place], [address], 3 08:50:55 CT, chest, w/o contrast - routine f/u Approved [id number] 02/03/2023 - 3 2022 023 [facility], [address], [address], [place], [address], 3 08:51:39 Medication Orders None recorded. Patient TargetsNo targets recorded. Patient InstructionsNo instructions recorded. Reason for Referral None Reported. Results Created Date Observation Date Name Description Value Unit Range Abnormal Flag Note LastModifiedBy Organization Detail LastModifiedTime 04/01/20 21 04/01/2021 pregn manuel test, urine HCG positi ve Not Available [facility] [place] [address], [address], [place], [address], 04/01/2021 15:46:00 04/01/20 21 04/02/2021 beta- HCG, quant itati ve, serum or plasm a HCG, total, qn 174 mIU/m L high Refer ence Range Nonpr egnan t or preme nopau ochoa <5 Postm enopa usal <10 Value s from diffe rent assay metho ds may vary. The use of this assay to monit or or to diagn ose patie nts with cance r or any condi tion unrel ated to pregn manuel has not been clear ed or appro luigi by the FDA or the [facility] act[facility] er of the assay . Not Available [facility] [address] [address] [place], [address], 04/02/2021 06:37:43 04/03/2004/04/2021 beta- HCG, quant itati ve, serum or plasm a HCG, total, qn 566 mIU/m L high Refer ence Range Nonpr egnan t or preme nopau ochoa <5 Postm enopa usal <10 Value s from diffe rent assay metho ds may vary. The use of this assay to monit or or to diagn ose patie nts with cance r or any condi tion unrel ated to pregn manuel has not been clear ed or appro luigi by the FDA or the [facility] act[facility] er of the assay . Not Available [facility] [address] [address] [place], [address], 04/04/2021 05:27:56 04/28/2005/02/2021 CULTU RE, URINE , ROUTI NE culture, urine, routine see note CULTU RE, URINE , ROUTI NE Micro Numbe r: [id number] Test Statu s: Final Speci men Sourc e: URINE Speci men Quali ty: Adequ ate Resul t: No Growt h Not Available [facility] [address] [address] [place], [address], 05/02/2021 23:01:44 04/28/20 21 05/02/2021 ANTIB IRMA SCREE N, RBC W/REF L ID, TITER AND AG antibody screen, RBC w/refl id, titer and Ag no antibo dies detect ed normal Refer ence range No antib odies detec galdino This assay is a scree faraz test for the detec tion of red blood cell antib odies . The test is not to be used for pretr ansfu gildardo scree faraz or for the medic al manag ement of an alloi mmuni zed pregn manuel. Not Available [address] [address] [place], [address], 05/02/2021 23:01:43 04/28/20 21 05/02/2021 RPR (DX) W/REF L TITER AND CONFI RMATO RY TESTI NG RPR (DX) w/refl titer and confirmatory testing non-re active non-re active normal Not Available [address] [address] [place], [address], 05/02/2021 23:01:43 04/28/2005/02/2021 PARVO VIRUS B19 ANTIB IRMA (IGG) parvovirus B19 antibody (IgG) 0.2 normal REFER ENCE RANGE : <0.9 INTER PRETI VE CRITE JULIETA: <0.9 Negat gely 0.9 - 1.1 Equiv ocal >1.1 Posit gely IgG persi sts for years and provi leann life- long immun ity. To diagn ose curre nt infec tion, consi kadi Parvo virus B19 DNA, PCR. Not Available [address] [address] [place], [address], 05/02/2021 23:01:43 04/28/2005/02/2021 ABO GROUP AND RH TYPE ABO group B Not Available [facility] [address] [address] [place], [address], 05/02/2021 23:01:44 04/28/2005/02/2021 ABO GROUP AND RH TYPE Rh type Rh(D) negati ve For addit ional infor donald pavon e refer to http: //[facility] declan childress.Que stDia gnost ics.c om/fa q/FAQ 111 (This link is being provi ded for infor luisito nal/ educa robin l purpo ses only. ) Not Available [facility] [address] [place], [address], 05/02/2021 23:01:44 04/28/20 21 05/02/2021 VARIC SHAYLEE ZOSTE R VIRUS ANTIB IRMA (IGG) varicella zoster virus antibody (IgG) 839.10 index normal Index Inter preta tion ----- ---- ----- ----- ----- ----- -- <135. 00 Negat gely - Antib irma not detec galdino 135.0 0 - 164.9 9 Equiv ocal > or = 165.0 0 Posit gely - Antib irma detec galdino A posit gely resul t indic ates that the patie nt has antib irma to VZV but does not diffe renti ate betwe en an activ e or past infec tion. The clini levon diagn osis must be inter prete d in conju nctio n with the clini levon signs and sympt oms of the patie nt. This assay relia mick measu res immun ity due to previ ous infec tion but may not be sensi tive enoug h to detec t antib odies induc ed by vacci natio n. Thus, a negat gely resul t in a vacci nated indiv idual does not neces saril y indic ate susce ptibi lity to VZV infec tion. A more sensi tive test for vacci natio n-ind uced immun ity is Varic shaylee Zoste r Virus Antib irma Immun ity Scree n, ACIF. Not Available [facility] [address] [place], [address], 05/02/2021 23:01:42 04/28/20 21 05/02/2021 RUBEL LA AB (IGG) , IMMUN E STATU S rubella Ab (IgG), immune status 1.62 index normal Index Inter preta tion ----- ----- ----- ---- <0.90 Not consi stent with immun ity 0.90- 0.99 Equiv ocal > or = 1.00 Consi stent with immun ity The prese nce of rubel la IgG antib irma sugge sts immun izati on or past or curre nt infec tion with rubel la virus . Not Available [address] [address] [place], [address], 05/02/2021 23:01:42 04/28/20 21 05/02/2021 HEPAT ITIS B SURFA CE ANTIG EN W/REF L CONFI RM hepatitis B surface antigen non-re active non-re active normal Not Available [address], [address], 05/02/2021 23:01:41 04/28/2005/02/2021 CBC (INCL UDES DIFF/ PLT) hemoglobin 13.3 g/dL 11.7-1 5.5 normal Not Available [address] [address] [place], [address], 05/02/2021 23:01:41 04/28/2005/02/2021 CBC (INCL UDES DIFF/ PLT) white blood cell count 8.2 thous and/u L 3.8-10 .8 normal Not Available [address], [address], 05/02/2021 23:01:41 04/28/20 21 05/02/2021 CBC (INCL UDES DIFF/ PLT) red blood cell count 4.44 vinod on/uL 3.80-5 .10 normal Not Available [address], [address], 05/02/2021 23:01:41 04/28/20 21 05/02/2021 CBC (INCL UDES DIFF/ PLT) hematocrit 40.1 % 35.0-4 5.0 normal Not Available [address] [place], [address], 05/02/2021 23:01:41 04/28/20 21 05/02/2021 CBC (INCL UDES DIFF/ PLT) MCV 90.3 fL 80.0-1 00.0 normal Not Available [address], [address], 05/02/2021 23:01:41 04/28/20 21 05/02/2021 CBC (INCL UDES DIFF/ PLT) MCH 30.0 pg 27.0-3 3.0 normal Not Available [address], [address], 05/02/2021 23:01:41 04/28/2005/02/2021 CBC (INCL UDES DIFF/ PLT) MCHC 33.2 g/dL 32.0-3 6.0 normal Not Available [address], [address], 05/02/2021 23:01:41 04/28/20 21 05/02/2021 CBC (INCL UDES DIFF/ PLT) RDW 12.3 % 11.0-1 5.0 normal Not Available [address], [address], 05/02/2021 23:01:41 04/28/2005/02/2021 CBC (INCL UDES DIFF/ PLT) platelet count 196 thous and/u L 140-40 0 normal Not Available [address], [address], 05/02/2021 23:01:41 04/28/2005/02/2021 CBC (INCL UDES DIFF/ PLT) MPV 11.3 fL 7.5-12 .5 normal Not Available [address], [address], 05/02/2021 23:01:41 04/28/20 21 05/02/2021 CBC (INCL UDES DIFF/ PLT) absolute neutrophils 6503 cells /uL 1500-7 800 normal Not Available [address], [address], 05/02/2021 23:01:41 04/28/20 21 05/02/2021 CBC (INCL UDES DIFF/ PLT) absolute lymphocytes 1189 cells /uL 850-39 00 normal Not Available [address], [address], 05/02/2021 23:01:41 04/28/20 21 05/02/2021 CBC (INCL UDES DIFF/ PLT) absolute monocytes 418 cells /uL 200-95 0 normal Not Available [address], [address], 05/02/2021 23:01:41 04/28/20 21 05/02/2021 CBC (INCL UDES DIFF/ PLT) absolute eosinophils 57 cells /uL 15-500 normal Not Available [address], [address], 05/02/2021 23:01:41 04/28/20 21 05/02/2021 CBC (INCL UDES DIFF/ PLT) absolute basophils 33 cells /uL 0-200 normal Not Available [address], [address], 05/02/2021 23:01:41 04/28/20 21 05/02/2021 CBC (INCL UDES DIFF/ PLT) neutrophils 79.3 % normal Not Available [address], [address], 05/02/2021 23:01:41 04/28/20 21 05/02/2021 CBC (INCL UDES DIFF/ PLT) lymphocytes 14.5 % normal Not Available [address], [address], 05/02/2021 23:01:41 04/28/20 21 05/02/2021 CBC (INCL UDES DIFF/ PLT) monocytes 5.1 % normal Not Available [address] [address] [place], [address], 05/02/2021 23:01:41 04/28/20 21 05/02/2021 CBC (INCL UDES DIFF/ PLT) eosinophils 0.7 % normal Not Available [address] [address] [place], [address], 05/02/2021 23:01:41 04/28/20 21 05/02/2021 CBC (INCL UDES DIFF/ PLT) basophils 0.4 % normal Not Available [address] [address] [place], [address], 05/02/2021 23:01:41 04/28/20 21 05/02/2021 CBC (INCL UDES DIFF/ PLT) comment We recei luigi your handw ritte n test order and perfo rmed CBC with diffe renti al (incl udes hemog ricky, plate let count and WBC with autom ated diffe renti al). If you inten ded to order a CBC witho ut diffe renti al or anoth er test, donald irvera ct us at [phone] [facility] ( [phone] ), to adjus t the ruth ann costa. Not Available [address], [address], 05/02/2021 23:01:41 04/28/20 21 05/02/2021 HIV 1/2 ANTIG EN/AN TIBOD Y,FOU RTH GENER ATION W/RFL HIV Ag/Ab, 4TH gen non-re active non-re active normal HIV-1 antig en and HIV-1 /HIV- 2 antib odies were not detec galdino. There is no labor atory evide nce of HIV infec tion. DONALD Gutierrez NOTE: This infor luisito childress has been discl osed to you from recor ds whose confi denti ality may be prote cted by state law. If your state requi res such prote ction , then the state law prohi bits you from ada ferreira furth er discl osure of the infor matio n witho ut the speci fic writt en conse nt of the perso n to whom it perta ins, or as other gomez permi tted by law. A gener al autho rizat ion for the relea se of medic al or other infor matio n is NOT suffi cient for this purpo se. For addit ional infor matio n pleas e refer to http: //[facility] cat n.que stdia gnost ics.c om/fa q/FAQ 106 (This link is being provi ded for infor matio nal/ educa robin l purpo ses only. ) The perfo rmanc e of this assay has not been clini jus valid ated in patie nts less than 2 years old. Not Available [facility] [address] [place], [address], 05/02/2021 23:01:40 04/28/2005/02/2021 CYTOM EGALO VIRUS ANTIB IRMA (IGG) cytomegalovi medhat antibody (IgG) >10.00 U/mL high U/mL Inter preta tion ----- ----- ----- ---- <0.60 Negat gely 0.60- 0.69 Equiv ocal > or = 0.70 Posit gely A posit gely resul t indic ates that the patie nt has antib irma to CMV. It does not diffe renti ate betwe en an activ e or past infec tion. Not Available [facility] [address] [place], [address], 05/02/2021 23:01:42 04/06/20 21 04/06/2021 US, obste tric, 1st trime ster No observ ation record ed. [id number] [facility] (Imaging) [address] [facility], [place], [address], 12/15/2022 02:51:52 04/27/20 21 04/27/2021 US, obste tric, 1st trime ster No observ ation record ed. [id number] [facility] (Imaging) [address] [facility] [facility], [place], [address], 12/15/2022 02:51:52 02/11/20 23 02/09/2023 US, thyro id No observ ation record ed. [email or web address] [facility] [address], [place], [address], 02/10/2023 16:37:41 02/11/20 23 02/09/2023 MRI, brain , w/wo contr ast No observ ation record ed. [email or web address] [facility] [address], [place], [address], 02/10/2023 16:37:42 02/11/20 23 02/09/2023 CT, chest , w/o contr ast No observ ation record ed. [email or web address] [facility] [address], [place], [address], 02/10/2023 16:37:42 02/18/20 23 11/27/2020 CT, angio gram, chest , w/o contr ast No observ ation record ed. [email or web address] [facility] [address], [place], [address], 02/21/2023 15:30:29 Result Notes None recorded. Problems Name Problem SNOMED Code Status Onset Date Resolution Date Notes Provider Name and Address Organization Details Recorded Time Anxiety 10451100 Active 2020 FARIBA Villarreal, [place] [facility] 3 12:49:07 74690205 Active 2020 Not Available [employer] 3 02:46:16 Loss of hair 425371760 Active 2022 YSABEL Mixon [address], [address], [place], [address] , [place] [facility] 3 11:54:21 Menstrual migraine 99976688 Active 2022 YSABEL Mixon [address], [place], [address] , [place] [facility] 3 11:54:26 Headache 99097237 Active 2022 YSABEL Mixon [address], [place], [address] , [place] [facility] 3 11:54:30 Multiple nodules of lung 583431408 Active 2022 YSABEL Mixon [address], [place], [address] , [place] [facility] 3 11:54:44 Goiter 1797786 Active 2022 YSABEL Mixon [address], [place], [address] , [place] [facility] 3 11:55:23 Generalized anxiety disorder 13044064 Active 2022 YSABEL Mixon [address], [place], [address] , [place] [facility] 3 11:56:05 Problem Notes None recorded. Procedures Surgical History None recorded. Imaging Results Imaging Date Name Status LastModified by Organiz ation Details LastModified Time 04/06/2021 US, obstetric, 1st trimester completed [id number] [facility] (Imaging) [address] [place], [address], 12/15/2022 02:51:52 04/27/2021 US, obstetric, 1st trimester completed [id number] [facility] (Imaging) [address] [place], [address], 12/15/2022 02:51:52 02/09/2023 US, thyroid completed [email or web address] [facility] [address], [place], [address], 02/10/2023 16:37:41 02/09/2023 MRI, brain, w/wo contrast completed [email or web address] [facility] [address], [place], [address], 02/10/2023 16:37:42 02/09/2023 CT, chest, w/o contrast completed [email or web address] [facility] [address], [place], [address], 02/10/2023 16:37:42 11/27/2020 CT, angiogram, chest, w/o contrast completed [email or web address] [facility] [address], [place], [address], 02/21/2023 15:30:29 Procedure Notes None recorded. Medical Equipment None Reported. Allergies Allergen ID Allergen Name Allergen Category Reaction Reaction Severity Criticality Documentation Date Start Date Code Code System Note Provider Name and Address Organization Details Recorded Time 3915 prednison e medicatio n other Not available Not available 12/15/2022 8640 RxNorm Not Available [facility] 02:51:31 Medications Name Sig Start Date Stop Date Status Note LastModified by Organization Details LastModified Time amoxicill in 500 mg capsule 02/01 completed Not Available Not Available Not Available Vitamin B-6 25 mg tablet TAKE 1 TABLET BY MOUTH THREE TIMES DAILY 02/02 completed Not Available Not Available Not Available sertralin e 100 mg tablet active Not Available Not Available Not Available Reglan 10 mg tablet Take 1 tablet 3 times a day by oral route for 30 days. 02/02 completed Not Available Not Available Not Available alprazola m 0.5 mg tablet 2022 active Not Available Not Available Not Avai lable alprazola m 0.25 mg tablet TAKE 1 TABLET BY MOUTH EVERY DAY NEEDED 04/29 completed Not Available Not Available Not Available cephalexi n 500 mg capsule 02/01 completed Not Available Not Available Not Available buspirone 10 mg tablet TAKE 1 TABLET BY MOUTH TWICE DAILY active Not Available Not Available No t Available fluoxetin e 10 mg capsule TAKE 1 CAPSULE BY MOUTH EVERY DAY FOR 7 DAYS 01/23 completed Not Available Not Available Not Available sertralin e 25 mg tablet 2022 active Not Available Not Available Not Avai lable ergocalci ferol (vitamin D2) 1,250 mcg (50,000 unit) capsule Take 1 capsule every week by oral route. active Not Available Not Available No t Available ondansetr on 4 mg disintegr ating tablet Place 1 tablet every 6-8 hours by translin gual route as needed. 02/01 completed Not Available Not Available Not Available fluoxetin e 20 mg capsule TAKE 1 CAPSULE BY MOUTH EVERY DAY 04/01 completed Not Available Not Available Not Available Unisom (doxylami ne) 25 mg tablet Take 0.5 tablets 3 times a day by oral route. 02/01 completed may cause drowsine ss Not Available Not Available Not Available Vitals Date Recorded Body height Body temperature Body mass index (BMI) Body weight Heart rate Respiratory rate Oxygen saturation Oxygen saturation in Arterial blood by Pulse oximetry Systolic blood pressure Diastolic blood pressure Provider Name and Address Organization Details Last Updated DateTime 3 177.8 cm 97.5 [degF] 20.7 kg/m2 78028.3 g 92 /min 16 /min 99 % 99 % 114 mm[Hg] 72 mm[Hg] FARIBA Villarreal [facility] [employer] 3 11:30:50 Date Recorded Body mass index (BMI) Body height Body weight Body weight Systolic blood pressure Diastolic blood pressure Systolic blood pressure Diastolic blood pressure Provider Name and Address Organization Details Last Updated DateTime 3 20.9 kg/m2 177.8 cm 18382.6 9 g 84293.7 382 g 108 mm[Hg] 80 mm[Hg] 100 mm[Hg] 70 mm[Hg] Not Available [employer] 3 02:45:30 Social History Question Answer Notes LastModified by Organizat ion Details LastModified Time Tobacco Smoking Status Former Smoker intermittent FARIBA Villarreal null, [facility] [employer] 02/02/2023 11:20:21 What Is Your Level Of Alcohol Consumption? Occasional [id number] Information not available 12/15/2022 What Is Your Level Of Caffeine Consumption? Occasional [id number] Information not available 12/15/2022 In The 14 Days Before Symptom Onset, Have You Had Close Contact With A Laboratory-confi rmed COVID-19 While That Case Was Ill? No [email or web address] Information not available 02/02/2023 In The 14 Days Before Symptom Onset, Have You Had Close Contact With A Person Who Is Under Investigation For COVID-19 While That Person Was Ill? No [email or web address] Information not available 02/02/2023 What Type Of Diet Are You Following? REGULAR [email or web address] Information not available 02/01/2023 Which Illicit Or Recreational Drugs Have You Used? No [email or web address] Information not available 02/02/2023 Do You Or Have You Ever Used E-cigarettes Or Vape? Never Used Electronic Cigarettes [email or web address] Information not available 02/02/2023 Have There Been Any Changes To Your Family Or Social Situation? No [email or web address] Information not available 02/02/2023 Do You Use Insect Repellent Routinely? No [email or web address] Information not available 02/02/2023 What Is Your Relationship Status? [email or web address] Information not available 02/01/2023 Do You Have Smoke And Carbon Monoxide Detectors In Your Home? Yes [email or web address] Information not available 02/02/2023 Do You Or Have You Ever Used Smokeless Tobacco? Never Used Smokeless Tobacco [id number] Information not available 12/15/2022 Do You Use Any Illicit Or Recreational Drugs? No [email or web address] Information not available 02/02/2023 Do You Use Sunscreen Routinely? Yes [email or web address] Information not available 02/02/2023 How Many Years Have You Smoked Tobacco? 5 [email or web address] Information not available 02/02/2023 Have You Recently Traveled Abroad? No [email or web address] Information not available 02/02/2023 Do You Have Any Dietary Restrictions? No [email or web address] Information not available 02/02/2023 Do You Or Have You Ever Used Any Other Forms Of Tobacco Or Nicotine? No [email or web address] Information not available 02/02/2023 Sex: Female Functional Status Question Answer Note LastModified by Organizat ion Details LastModified Time What is your exercise level? Occasional [id number] Information not available 12/15/2022 Mental Status None recorded. Family History Relationship Description Onset Age of this Age Resolved Age Notes LastModified by Organization Details LastModified Time Maternal Grandmother Malignant tumor of lung [email or web address] Not available 02/02 11:20:20 Mother Hypertensive disorder [id number] Not available 12/15/2022 02:41:06 Mother Multiple cysts of breast [email or web address] Not available 02/02 11:20:20 Father Diabetes mellitus [id number] Not available 12/15/2022 02:41:06 Notes:smoking related diseas es Medical History Condition Response ANXIETY DISORDER Y BOWEL PROBLEMS Y Gynecological History Statement/Question Response Abnormal Pap N Date of LMP 03/03/2021 Sexually Active? Y STIs/STDs N Date of Last Pap Smear Current Control Method Partner Vas ectomy Age at Menarche 16 Breast Problems no Obstetrics History GPAL:G 4 P 2 0 1 2 Type Value Full Term 2 Spontaneous 1 Living 2 Total 4 Immunizations Vaccine Type Date Status Note Provider Nam e and Address Organization Details Recorded Time COVID-19, mRNA, LNP-S, PF, 30 mcg/0.3 mL dose 10/06/2021 completed Not Available [employer] 02:51:22 Past Encounters Encounter ID Performer Location Encounter Start Date Encounter Closed Date Diagnosis/Indication Diagnosis SNOMED-CT Code Diagnosis ICD10 Code Diagnosis Note [id number] _ATHENA_M IGRATION_ DEFAULT_1 _1 , 01/23/2021 00:00:00 01/23/2021 14:28:21 [id number] _ATHENA_M IGRATION_ DEFAULT_1 _1 , 04/01/2021 00:00:00 04/01/2021 19:31:03 [id number] _ATHENA_M IGRATION_ DEFAULT_1 _1 , 04/06/2021 00:00:00 04/06/2021 15:37:51 [id number] _ATHENA_M IGRATION_ DEFAULT_1 _1 , 04/27/2021 00:00:00 04/27/2021 10:32:46 [id number] _ATHENA_M IGRATION_ DEFAULT_1 _1 , 04/29/2021 00:00:00 04/29/2021 15:36:22 [id number] YSABEL Mixon [facility] [place] [address] [place] [address] 02/02/2023 11:20:11 02/02/2023 12:02:40 Adult health examination 357717856 Z00.01 annual well exam completed. fasting annual labs ordered Cholesterol screening 27 3773859 Z13.220 Diabetes m ellitus screening 710599958 Z13.1 Loss of hair 567863561 L 65.9 screening iron studies and b12, folate panel Headache 13625459 R51.9 increase in frequency, severity and duration of headaches. send for MRI brain w/wo contrast Multiple n odules of lung 449958724 R91.8 routine f/u due for CT chest on lung nodules, lower risk. Goiter 3806611 E04.9 due for repeat f/u ultrasound thyroid Long-term drug therapy 811947755 Z79.899 annual CBC and CMP due Generalize d anxiety disorder 05801243 F41.1 [facility] Section Related Observation LastModified by Organization Detai ls LastModified Time None Recorded Concern Status LastModified by Organization Details LastModified Time None Recorded Advance Directives Directive None Recorded Payers Encounter Date Sequence Insurance Name Policy Number Policy Kennedy Covered Member ID Kennedy Member ID Guarantor Name 02/02/2023 1 [facility] [id number] Ruikatiana Henderson [id number] Vidhya Henderson Notes Date Note Type Note Provider Name and Address Organization Details Recorded Time 02/02/2023 text/html Anxiety/Depressi on Reported bypatient.Severity :denies suicidal ideations; able to maintain relationships; does not interfere with activities of daily living Duration:symptoms lasting over 2 weeks Onset/Timing:still present Context:no major life stressors Modifying Factors:rx. Sees psychiatrist who prescribed meds. Associated Symptoms:denies homicidal ideations; no significant weight gain; no significant weight loss; no visual/auditory hallucinations; no delusions; no shortness of breath; fatigue Wellness YSABEL Mixon [address] [facility], [facility] [address], [place], [address], [facility] [employer] 02/10/2023 23:05:11 OBGyn Episode No OBEpisode recorded.
--- OUTSIDE RECORDS SUMMARY | 2024-11-19 08:11 | XMS_ITS | Data Portability ---
Author Organization [facility] Address [address] [facility] [place] [address] Assessment No assessment recorded. Plan of Treatment Reminders Order Date Submit Date Provider Last Modified By Organization Details Last Modified Time Details Appointments ANY 15 2024 11:15A M YSABEL Mixon Not available Not available Not available Lab CMP, serum or plasma 2023 024 [facility], [address], [place], [address], 01/09/2024 07:08:04 CBC w/ auto diff 2023 024 [facility], [address], [place], [address], 01/09/2024 07:08:06 amylase + lipase, serum 2023 024 [facility], [address], [place], [address], 01/09/2024 07:08:07 urinalysi s complete, reflex culture 2023 024 [facility], [address], [place], [address], 01/09/2024 07:08:05 TSH + free T4, serum 2023 024 [facility], [address], [place], [address], 01/09/2024 07:08:02 lipid panel, serum 2023 024 [place] [facility], [address], [place], [address], 01/09/2024 07:08:03 HbA1c (hemoglob in A1c), blood 2023 024 [facility], [address], [place], [address], 01/09/2024 07:08:05 Referral general surgeon referral [address] [facility], [address], [address], [place], [address], 10/24/2024 14:32:59 Procedures None recorded. Surgeries None recorded. Imaging US, abdomen, complete 2023 024 [facility], [address] [facility] , [address], [place], [address], 12/26/2023 09:38:46 Medication Orders famotidin e 40 mg tablet 2023 024 [id number], [address], [place], [place], [id number], 06/19/2024 11:53:17 Patient TargetsNo targets recorded. Patient InstructionsNo instructions recorded. Reason for Referral General Surgeon Referral for Biliary dyskinesia Referring Physician: Alba Christian, Internal Medicine, Encounter Date: 06/19/2024 Results Created Date Observation Date Name Description Value Unit Range Abnormal Flag Note LastModifiedBy Organization Detail LastModifiedTime 01/06/2001/07/2024 TSH+F REE T4 TSH 0.892 uIU/m L 0.450- 4.500 Not Available [facility] ([facility]) [address] [facility], [place], [address], 01/09/2024 07:08:02 01/06/2001/07/2024 TSH+F REE T4 T4,free(dire ct) 1.45 NG/dL 0.82-1 .77 Not Available [facility] ([facility]) [address] [place], [address], 01/09/2024 07:08:02 01/06/20 24 01/07/2024 LIPID PANEL cholesterol, total 161 mg/dL 100-19 9 Not Available [facility] ([facility]) [address] [place], [address], 01/09/2024 07:08:03 01/06/20 24 01/07/2024 LIPID PANEL triglyceride s 106 mg/dL 0-149 Not Available [facility] ([facility]) [address] [place], [address], 01/09/2024 07:08:03 01/06/20 24 01/07/2024 LIPID PANEL HDL cholesterol 57 mg/dL >39 Not Available [facility] ([facility] [address] [place], [address], 01/09/2024 07:08:03 01/06/20 24 01/07/2024 LIPID PANEL VLDL cholesterol levon 19 mg/dL 5-40 Not Available [facility] ([facility]) [address] [place], [address], 01/09/2024 07:08:03 01/06/20 24 01/07/2024 LIPID PANEL LDL chol calc ([facility]) 85 mg/dL 0-99 Not Available [facility] ([facility]) [address] [place], [address], 01/09/2024 07:08:03 01/06/20 24 01/07/2024 COMP. METAB OLIC PANEL (14) glucose 90 mg/dL 70-99 Not Available [facility] ([facility]) [address] [place], [address], 01/09/2024 07:08:03 01/06/20 24 01/07/2024 COMP. METAB OLIC PANEL (14) BUN 10 mg/dL 6-20 Not Available [facility] ([facility]) [address] [facility] [place], [address], 01/09/2024 07:08:03 01/06/20 24 01/07/2024 COMP. METAB OLIC PANEL (14) creatinine 0.66 mg/dL 0.57-1 .00 Not Available [facility] ([facility]) [address] [facility], [place], [address], 01/09/2024 07:08:03 01/06/20 24 01/07/2024 COMP. METAB OLIC PANEL (14) eGFR 117 mL/mi n/1.7 3 >59 Not Available [facility] ([facility]) [address] [facility], [place], [address], 01/09/2024 07:08:03 01/06/20 24 01/07/2024 COMP. METAB OLIC PANEL (14) BUN/creatini ne ratio 15 9-23 Not Available [facility] ([facility]) [address] [facility], [place], [address], 01/09/2024 07:08:03 01/06/20 24 01/07/2024 COMP. METAB OLIC PANEL (14) sodium 142 mmol/ L 134-14 4 Not Available [facility] ([facility]) [address] [facility], [place], [address], 01/09/2024 07:08:03 01/06/20 24 01/07/2024 COMP. METAB OLIC PANEL (14) potassium 4.3 mmol/ L 3.5-5. 2 Not Available [facility] ([facility]) [address] [facility], [place], [address], 01/09/2024 07:08:03 01/06/20 24 01/07/2024 COMP. METAB OLIC PANEL (14) chloride 105 mmol/ L 96-106 Not Available [facility] ([facility]) [address] [place], [address], 01/09/2024 07:08:03 01/06/20 24 01/07/2024 COMP. METAB OLIC PANEL (14) carbon dioxide, total 24 mmol/ L 20-29 Not Available [facility] ([facility]) [address] [place], [address], 01/09/2024 07:08:03 01/06/20 24 01/07/2024 COMP. METAB OLIC PANEL (14) calcium 9.3 mg/dL 8.7-10 .2 Not Available [facility] ([facility]) [address] [place], [address], 01/09/2024 07:08:03 01/06/20 24 01/07/2024 COMP. METAB OLIC PANEL (14) protein, total 6.5 g/dL 6.0-8. 5 Not Available [facility] ([facility]) [address] [place], [address], 01/09/2024 07:08:03 01/06/20 24 01/07/2024 COMP. METAB OLIC PANEL (14) albumin 4.4 g/dL 3.9-4. 9 Not Available [facility] ([facility]) [address] [place], [address], 01/09/2024 07:08:03 01/06/20 24 01/07/2024 COMP. METAB OLIC PANEL (14) globulin, total 2.1 g/dL 1.5-4. 5 Not Available [facility] ([facility]) [address] [place], [address], 01/09/2024 07:08:03 01/06/20 24 01/07/2024 COMP. METAB OLIC PANEL (14) A/G ratio 2.1 1.2-2. 2 Not Available [facility] ([facility]) [address] [place], [address], 01/09/2024 07:08:03 01/06/20 24 01/07/2024 COMP. METAB OLIC PANEL (14) bilirubin, total 0.7 mg/dL 0.0-1. 2 Not Available [facility] ([facility]) [address] [place], [address], 01/09/2024 07:08:03 01/06/20 24 01/07/2024 COMP. METAB OLIC PANEL (14) alkaline phosphatase 48 IU/L 44-121 Not Available [facility] ([facility]) [address] [place], [address], 01/09/2024 07:08:03 01/06/20 24 01/07/2024 COMP. METAB OLIC PANEL (14) AST (SGOT) 17 IU/L 0-40 Not Available [facility] ([facility]) [address] [facility], [place], [address], 01/09/2024 07:08:03 01/06/20 24 01/07/2024 COMP. METAB OLIC PANEL (14) ALT (SGPT) 15 IU/L 0-32 Not Available [facility] ([facility]) [address] [facility] [place], [address], 01/09/2024 07:08:03 01/06/20 24 01/07/2024 MICRO SCOPI C EXAMI NATIO N WBC 0-5 /hpf 0-5 Not Available [facility] ([facility]) [address] [facility] [place], [address], 01/09/2024 07:08:04 01/06/20 24 01/07/2024 MICRO SCOPI C EXAMI NATIO N RBC 0-2 /hpf 0-2 Not Available [facility] ([facility]) [address] [facility] [place], [address], 01/09/2024 07:08:04 01/06/20 24 01/07/2024 MICRO SCOPI C EXAMI NATIO N epithelial cells (non renal) 0-10 /hpf 0-10 Not Available [facility] ([facility]) [address] [facility], [place], [address], 01/09/2024 07:08:04 01/06/20 24 01/07/2024 MICRO SCOPI C EXAMI NATIO N casts None seen /lpf nonese en Not Available [facility] ([facility]) [address] [facility], [place], [address], 01/09/2024 07:08:04 01/06/20 24 01/07/2024 MICRO SCOPI C EXAMI NATIO N bacteria Modera te nonese en/few abnormal Not Available [facility] ([facility]) [address] [facility], [place], [address], 01/09/2024 07:08:04 01/06/20 24 01/07/2024 UA/M W/RFL X CULTU RE, COMP specific gravity 1.024 1.005- 1.030 Not Available [facility] ([facility]) [address] [facility], [place], [address], 01/09/2024 07:08:05 01/06/20 24 01/07/2024 UA/M W/RFL X CULTU RE, COMP pH 6.5 5.0-7. 5 Not Available [facility] ([facility]) [address] [facility], [place], [address], 01/09/2024 07:08:05 01/06/20 24 01/07/2024 UA/M W/RFL X CULTU RE, COMP urine-color Yellow yellow Not Available [facility] ([facility]) [address] [facility], [place], [address], 01/09/2024 07:08:05 01/06/20 24 01/07/2024 UA/M W/RFL X CULTU RE, COMP appearance Cloudy clear abnormal Not Available [facility] ([facility]) [address] [facility], [place], [address], 01/09/2024 07:08:05 01/06/20 24 01/07/2024 UA/M W/RFL X CULTU RE, COMP WBC esterase Negati ve negati ve Not Available [facility] ([facility]) [address] [facility], [place], [address], 01/09/2024 07:08:05 01/06/20 24 01/07/2024 UA/M W/RFL X CULTU RE, COMP protein Trace negati ve/tra ce Not Available [facility] ([facility]) [address] [facility], [place], [address], 01/09/2024 07:08:05 01/06/20 24 01/07/2024 UA/M W/RFL X CULTU RE, COMP glucose Negati ve negati ve Not Available [facility] ([facility]) [address] [facility], [place], [address], 01/09/2024 07:08:05 01/06/20 24 01/07/2024 UA/M W/RFL X CULTU RE, COMP ketones Negati ve negati ve Not Available [facility] ([facility]) [address] [facility], [place], [address], 01/09/2024 07:08:05 01/06/20 24 01/07/2024 UA/M W/RFL X CULTU RE, COMP occult blood Negati ve negati ve Not Available [facility] ([facility]) [address] [facility], [place], [address], 01/09/2024 07:08:05 01/06/20 24 01/07/2024 UA/M W/RFL X CULTU RE, COMP bilirubin Negati ve negati ve Not Available [facility] ([facility]) [address] [facility], [place], [address], 01/09/2024 07:08:05 01/06/20 24 01/07/2024 UA/M W/RFL X CULTU RE, COMP urobilinogen ,semi-qn 0.2 mg/dL 0.2-1. 0 Not Available [facility] ([facility]) [address] [facility], [place], [address], 01/09/2024 07:08:05 01/06/20 24 01/07/2024 UA/M W/RFL X CULTU RE, COMP nitrite, urine Negati ve negati ve Not Available [facility] ([facility]) [address] [facility], [place], [address], 01/09/2024 07:08:05 01/06/20 24 01/07/2024 UA/M W/RFL X CULTU RE, COMP microscopic examination Commen t Micro scopi c follo ws if indic ated. Not Available [facility] ([facility]) [address] [facility], [place], [address], 01/09/2024 07:08:05 01/06/20 24 01/07/2024 UA/M W/RFL X CULTU RE, COMP microscopic examination See below: Micro scopi c was indic ated and was perfo rmed. Not Available [facility] ([facility]) [address] [facility], [place], [address], 01/09/2024 07:08:05 01/06/20 24 01/07/2024 UA/M W/RFL X CULTU RE, COMP urinalysis reflex Commen t This speci men has refle xed to a Urine Cultu re. Not Available [facility] ([facility]) [address] [place], [address], 01/09/2024 07:08:05 01/06/20 24 01/07/2024 HEMOG LOBIN A1C hemoglobin A1C 5.1 % 4.8-5. 6 Predi abete s: 5.7 - 6.4 Diabe mushtaq: >6.4 Glyce holli contr ol for adult s with diabe mushtaq: <7.0 Not Available [facility] ([facility]) [address] [facility], [place], [address], 01/09/2024 07:08:05 01/06/20 24 01/07/2024 CBC WITH DIFFE RENTI AL/PL ATELE T WBC 6.3 x10e3 /uL 3.4-10 .8 Not Available [facility] ([facility]) [address] [facility], [place], [address], 01/09/2024 07:08:06 01/06/20 24 01/07/2024 CBC WITH DIFFE RENTI AL/PL ATELE T RBC 4.88 x10e6 /uL 3.77-5 .28 Not Available [facility] ([facility]) [address] [facility], [place], [address], 01/09/2024 07:08:06 01/06/20 24 01/07/2024 CBC WITH DIFFE RENTI AL/PL ATELE T hemoglobin 14.5 g/dL 11.1-1 5.9 Not Available [facility] ([facility]) [address] [facility], [place], [address], 01/09/2024 07:08:06 01/06/20 24 01/07/2024 CBC WITH DIFFE RENTI AL/PL ATELE T hematocrit 45.1 % 34.0-4 6.6 Not Available [facility] ([facility]) [address] [facility], [place], [address], 01/09/2024 07:08:06 01/06/20 24 01/07/2024 CBC WITH DIFFE RENTI AL/PL ATELE T MCV 92 fL 79-97 Not Available [facility] ([facility]) [address] [place], [address], 01/09/2024 07:08:06 01/06/20 24 01/07/2024 CBC WITH DIFFE RENTI AL/PL ATELE T MCH 29.7 pg 26.6-3 3.0 Not Available [facility] ([facility]) [address] [facility], [place], [address], 01/09/2024 07:08:06 01/06/20 24 01/07/2024 CBC WITH DIFFE RENTI AL/PL ATELE T MCHC 32.2 g/dL 31.5-3 5.7 Not Available [facility] ([facility]) [address] [facility], [place], [address], 01/09/2024 07:08:06 01/06/20 24 01/07/2024 CBC WITH DIFFE RENTI AL/PL ATELE T RDW 12.5 % 11.7-1 5.4 Not Available [facility] ([facility]) [address] [facility], [place], [address], 01/09/2024 07:08:06 01/06/20 24 01/07/2024 CBC WITH DIFFE RENTI AL/PL ATELE T platelets 189 x10e3 /uL 150-45 0 Not Available [facility] ([facility]) [address] [facility], [place], [address], 01/09/2024 07:08:06 01/06/20 24 01/07/2024 CBC WITH DIFFE RENTI AL/PL ATELE T neutrophils 69 % notest ab. Not Available [facility] ([facility]) [address] [facility], [place], [address], 01/09/2024 07:08:06 01/06/20 24 01/07/2024 CBC WITH DIFFE RENTI AL/PL ATELE T lymphs 22 % notest ab. Not Available [facility] ([facility]) [address] [facility], [place], [address], 01/09/2024 07:08:06 01/06/20 24 01/07/2024 CBC WITH DIFFE RENTI AL/PL ATELE T monocytes 7 % notest ab. Not Available [facility] ([facility]) [address] [facility], [place], [address], 01/09/2024 07:08:06 01/06/20 24 01/07/2024 CBC WITH DIFFE RENTI AL/PL ATELE T eos 1 % notest ab. Not Available [facility] ([facility]) [address] [facility], [place], [address], 01/09/2024 07:08:06 01/06/20 24 01/07/2024 CBC WITH DIFFE RENTI AL/PL ATELE T basos 1 % notest ab. Not Available [facility] ([facility]) [address] [facility], [place], [address], 01/09/2024 07:08:06 01/06/20 24 01/07/2024 CBC WITH DIFFE RENTI AL/PL ATELE T neutrophils (absolute) 4.4 x10e3 /uL 1.4-7. 0 Not Available [facility] ([facility]) [address] [facility], [place], [address], 01/09/2024 07:08:06 01/06/20 24 01/07/2024 CBC WITH DIFFE RENTI AL/PL ATELE T lymphs (absolute) 1.4 x10e3 /uL 0.7-3. 1 Not Available [facility] ([facility]) [address] [facility], [place], [address], 01/09/2024 07:08:06 01/06/20 24 01/07/2024 CBC WITH DIFFE RENTI AL/PL ATELE T monocytes(ab solute) 0.5 x10e3 /uL 0.1-0. 9 Not Available [facility] ([facility]) [address] [facility], [place], [address], 01/09/2024 07:08:06 01/06/20 24 01/07/2024 CBC WITH DIFFE RENTI AL/PL ATELE T eos (absolute) 0.1 x10e3 /uL 0.0-0. 4 Not Available [facility] ([facility]) [address] [place], [address], 01/09/2024 07:08:06 01/06/20 24 01/07/2024 CBC WITH DIFFE RENTI AL/PL ATELE T baso (absolute) 0.1 x10e3 /uL 0.0-0. 2 Not Available [facility] ([facility]) [address] [facility], [place], [address], 01/09/2024 07:08:06 01/06/20 24 01/07/2024 CBC WITH DIFFE RENTI AL/PL ATELE T immature granulocytes 0 % notest ab. Not Available [facility] ([facility]) [address] [place], [address], 01/09/2024 07:08:06 01/06/20 24 01/07/2024 CBC WITH DIFFE RENTI AL/PL ATELE T immature grans (abs) 0.0 x10e3 /uL 0.0-0. 1 Not Available [facility] ([facility]) [address] [place], [address], 01/09/2024 07:08:06 01/06/20 24 01/09/2024 URINE CULTU RE, COMPR EHENS MILI urine culture,comp rehensive Final report Not Available [facility] ([facility]) [address] [place], [address], 01/09/2024 07:08:06 01/06/20 24 01/09/2024 URINE CULTU RE, COMPR EHENS MILI result 1 Commen t Mixed uroge nital bruno 25,00 0-50, 000 colon y formi ng units per mL Not Available [facility] ([facility]) [address] [place], [address], 01/09/2024 07:08:06 03/22/20 24 01/07/2024 RUDY+L IPASE amylase 39 U/L 31-110 Not Available [facility] ([facility]) [address] [facility], [place], [address], 01/09/2024 07:08:07 01/06/20 24 01/07/2024 RUDY+L IPASE lipase 27 U/L 14-72 Not Available [facility] ([facility]) [address] [facility], [place], [address], 01/09/2024 07:08:07 12/26/19 24 12/26/2023 US, abdom en, compl ete No observ ation record ed. [email or web address] [facility] [address] [address], [place], [address], 12/26/2023 14:39:06 06/12/20 24 06/12/2024 NM, gastr ic empty ing scan No observ ation record ed. [address], [place], [address], 06/13/2024 10:48:42 06/14/20 24 06/14/2024 NM, hepat obili bruce scan, w/ CCK No observ ation record ed. [address], [place], [address], 06/15/2024 15:46:07 Result Notes None recorded. Problems Name Problem SNOMED Code Status Onset Date Resolution Date Notes Provider Name and Address Organization Details Recorded Time Biliary dyskinesia 902298697 Active 024 YSABEL Mixon Attn: Tony poon,[address], [place], [address], [place] [facility] 4 21:04:51 Right upper quadrant pain 725669865 Active 024 YSABEL Mixon Attn: Tony g,[address], [place], [address], [place] [facility] 21:04:52 Abdominal pain 90827229 Active 024 YSABEL Mixon Attn: Tony poon,[address], [place], [address], [facility] 21:05:07 Problem Notes None recorded. Procedures Surgical History None recorded. Imaging Results Imaging Date Name Status LastModified by Organization Details LastModified Time 12/26/2023 US, abdomen, complete completed [email or web address] [facility] [address], [place], [address], 12/26/2023 14:39:06 06/12/2024 NM, gastric emptying scan completed [address] [place] [address], [address], 06/13/2024 10:48:42 06/14/2024 NM, hepatobiliary scan, w/ CCK completed [address] [place] [address], [address], 06/15/2024 15:46:07 Procedure Notes None recorded. Medical Equipment None Reported. Allergies Allergen ID Allergen Name Allergen Category Reaction Reaction Severity Criticality Documentation Date Start Date Code Code System Note Provider Name and Address Organization Details Recorded Time 185771 prednison e medicatio n Not available Not available high 12/21/2023 8640 RxNorm incre ase anxie ty Not Available Not Available Not Available Medications Name Sig Start Date Stop Date Status Note LastModified by Organization Details LastModified Time cyclobenzapr ine 10 mg tablet 12/20 completed Not Available Not Available Not Available famotidine 40 mg tablet Take 1 tablet every day by oral route with meal(s). 2023 active Not Available Not Available Not Avai lable sertraline 100 mg tablet TAKE 1 TABLET BY MOUTH EVERY DAY active Not Available Not Available No t Available alprazolam 0.5 mg tablet TAKE 1 TABLET BY MOUTH EVERY DAY NEEDED 12/20 completed Not Available Not Available Not Available buspirone 10 mg tablet TAKE 1 TABLET BY MOUTH TWICE DAILY 12/20 completed Not Available Not Available Not Available sertraline 25 mg tablet TAKE 1 TABLET BY MOUTH DAILY FOR 7 DAYS THEN TAKE 2 TABLETS BY MOUTH DAILY FOR 7 DAYS 12/20 completed Not Available Not Available Not Available methylphenid ate ER 18 mg tablet,exten ded release 24 hr TAKE 1 TABLET BY MOUTH EVERY DAY 12/20 completed Not Available Not Available Not Available atomoxetine 40 mg capsule TAKE 1 CAPSULE BY MOUTH EVERY MORNING. SWALLOW WHOLE 06/19 completed Not Available Not Available Not Available Vitals Date Recorded Body weight Heart rate Respiratory rate Body mass index (BMI) Body height Systolic blood pressure Diastolic blood pressure Provider Name and Address Organization Details Last Updated DateTime 4 [address]321.5 2 g 96 /min 18 /min 20.2 kg/m2 177.8 cm 125 mm[Hg] 83 mm[Hg] Eduardo Santacruz MA [facility] 4 12:46:13 Date Recorded Oxygen saturation Oxygen saturation in Arterial blood by Pulse oximetry Systolic blood pressure Diastolic blood pressure Provider Name and Address Organization Details Last Updated DateTime 12/21/2023 98 % 98 % 110 mm[Hg] 80 mm[Hg] YSABEL Mixon Attn: Tony poon,[address] [place], [address], [facility] 4 13:05:59 Date Recorded Body height Body mass index (BMI) Body weight Respiratory rate Oxygen saturation Oxygen saturation in Arterial blood by Pulse oximetry Heart rate Systolic blood pressure Diastolic blood pressure Provider Name and Address Organization Details Last Updated DateTime 4 177.8 cm 21.4 kg/m2 57813.9 g 18 /min 100 % 100 % 84 /min 116 mm[Hg] 82 mm[Hg] Eduardo Santacruz MA [facility] 4 11:12:25 Social History Question Answer Notes LastModified by Organizat ion Details LastModified Time Tobacco Smoking Status Current Some Day Smoker socially Eduardo Santacruz MA null, [facility] 12/21/2023 12:45:32 Do You Have An Advance Directive? No Information not available 06/19/2024 What Is Your Level Of Alcohol Consumption? Occasional Couple A Week Information not available 12/21/2023 Are You Blind Or Do You Have Difficulty Seeing? No Information not available 12/21/2023 What Is Your Level Of Caffeine Consumption? Occasional 1 Cup Of Cofee Information not available 12/21/2023 In The 14 Days Before Symptom Onset, Have You Had Close Contact With A Laboratory-confi rmed COVID-19 While That Case Was Ill? No Information not available 12/21/2023 In The 14 Days Before Symptom Onset, Have You Had Close Contact With A Person Who Is Under Investigation For COVID-19 While That Person Was Ill? No Information not available 12/21/2023 Have You Been To An Area Known To Be High Risk For COVID-19? No Information not available 12/21/2023 Are You Deaf Or Do You Have Serious Difficulty Hearing? No Information not available 12/21/2023 What Type Of Diet Are You Following? REGULAR Information not available 12/21/2023 Are There Any Guns Present In Your Home? No Information not available 12/21/2023 What Was The Date Of Your Most Recent Tobacco Screening? 06/19/2024 Information not available 06/19/2024 What Is Your Current Pack Years? 10packyears Information not available 12/21/2023 What Is Your Relationship Status? Information not available 06/19/2024 Do You Use Your Seat Belt Or Car Seat Routinely? Yes Information not available 12/21/2023 Do You Have Smoke And Carbon Monoxide Detectors In Your Home? Yes Information not available 12/21/2023 How Much Tobacco Do You Smoke? No Information not available 06/19/2024 Do You Feel Stressed (tense, Restless, Nervous, Or Anxious, Or Unable To Sleep At Night)? [id number] Information not available 06/19/2024 Do You Use Any Illicit Or Recreational Drugs? No Information not available 12/21/2023 Do You Use Sunscreen Routinely? Yes Information not available 12/21/2023 Has Tobacco Cessation Counseling Been Provided? Yes Information not available 12/21/2023 On What Date Was Tobacco Cessation Counseling Provided? 06/19/2024 Information not available 06/19/2024 Do You Or Have You Ever Used Any Other Forms Of Tobacco Or Nicotine? No Information not available 12/21/2023 Sex: Female Functional Status Question Answer Note LastModified by Organizat ion Details LastModified Time Are you able to care for yourself? Yes Information not available 12/21/2023 What is your exercise level? Occasional Information not available 12/21/2023 Mental Status None recorded. Family History Relationship Description Onset Age of this Age Resolved Age Notes LastModified by Organization Details LastModified Time Father Attention deficit hyperactivit y disorder, predominantl y inattentive type tcarterma Not available 2023 13:15:49 Sister Attention deficit hyperactivit y disorder, predominantl y inattentive type tcarterma Not available 2023 13:15:49 Sister Depressive disorder tcarterma Not available 2023 13:15:58 Mother Hypertensive disorder tcarterma Not available 2023 13:16:12 Medical History Condition Response Coronary Artery Disease N Other N High Blood Pressure N Atrial Fibrillation N Kidney or Bladder Problems N Thyroid Problems N GI Problems N Depression N COPD N Blood Clots N Skin Problems N Anemia N Heart Attack (MS) N Anxiety Disorder Y Diabetes N Muscle, Joint, or Bone Problems N Seizures/Epilepsy N Acid Reflux (GERD) N Cancer N Stroke N Asthma N Allergies N High Cholesterol N Hepatitis N Liver Disease N Headaches N Heart Failure N Osteoporosis N Gynecological History Statement/Question Response Menses Monthly Y Current Control Method None Flow Moderate Date of LMP 06/05/2024 LMP Approximate Obstetrics History GPAL:G 3 P 3 0 0 3 Type Value Multiple Births 0 Full Term 3 Induced 0 Spontaneous 0 Premature 0 Living 3 Ectopics 0 Total 3 Past Encounters Encounter ID Performer Location Encounter Start Date Encounter Closed Date Diagnosis/Indication Diagnosis SNOMED-CT Code Diagnosis ICD10 Code Diagnosis Note [id number] YSABEL Mixon Counts include 234 beds at the [facility] [address] [place] [address] 12/21/2023 12:35:58 12/21/2023 13:39:41 Right sided abdominal pain 040159886 R10.9 Send for u/s abdomen complete, Cbc, CMP, amylase, lipase and UA w/cx. Cholesterol screening 27 [id number] Z13.220 fasting lipid panel ordered for baseline. Diabetes m ellitus screening 661514936 Z13.1 screening a1c ordered. Thyroid di sorder screening 353798150 Z13.29 screening thyroid panel ordered. Generalize d anxiety disorder 11407451 F41.1 stable on sertraline 50mg daily from psychiatry . [id number] YSABEL Mixon [facility] Kristine Lynn [address] [place] [address] 06/19/2024 11:00:57 06/19/2024 12:35:40 Right upper quadrant pain 426546492 R10.11 Start famotidine 40 mg once daily to see if this helps alleviate any symptoms. We will hold off on the upper GI series at this time until General surgery consult. Abdominal pain 26098984 R10.9 As above Biliary dyskinesia 2007 K82.8 Refer to general surgeon to consult on biliary dyskinesia with a documented ejection fraction of 29% which is just below normal. Health Concerns Section Related Observation LastModified by Organization Detai ls LastModified Time None Recorded Concern Status LastModified by Organization Details LastModified Time None Recorded Advance Directives Directive N: Payers Encounter Date Sequence Insurance Name Policy Number Policy Kennedy Covered Member ID Kennedy Member ID Guarantor Name 12/21/2023 1 [facility] [id number] Rui Henderson [id number] 2 Vidhya Henderson 06/19/2024 1 [facility] [id number] Rui Henderson [id number] 2 Vidhya Henderson Notes Date Note Type Note Provider Name and Address Organization Details Recorded Time 12/21/2023 text/html Generic HPI TemplateReported bypatient.Notes:Onset 1 month ago, right upper side pain, went to urgent care, urine was clear and nothing else done. She feels it coming and going . She was on vacation last week at [place] and didn't really notice it. No connection to food/meals. YSABEL Mixon Attn: Accounting,[address], [place], [address], [facility] 01/01/2024 19:24:26 06/19/2024 text/html Abdominal PainRe ported bypatient.Notes:she did have some heartburn at one point, but now symptoms are she feels full and burpy more often. She ate a greasy burger and felt horrible all day. She has some pain in the right lower shoulder blade region at times and then also right upper quadrant pain at times. She has had extensive testing done including nuclear med HIDA scan and nuclear med gastric emptying study. The only testing not completed as the upper GI series. YSABEL Mixon Attn: Accounting,[address] [place], [address], [place] [facility] 06/24/2024 21:05:20 OBGyn Episode No OBEpisode recorded.
--- OUTSIDE RECORDS SUMMARY | 2024-11-19 08:11 | XMS_ITS | Clinical Summary ---
Author Organization [facility] Address [address] [place] [address] Care Team Providers Care Sign Builder Name Role Phone Unavailable Primary Care Provider Unavailabl e Source Comments [facility],non-owned Affiliates and Associated Physician Practices is amultiple site organization consisting of ambulatory clinics and hospital sitesin [place], [place], [place] and [place]. This disclosure is being madepursuant to the Care Everywhere program and may not contain all information available regarding this patient. Last updated 18.[facility] Social History Tobacco Use Types Packs/Day Years Used Date Smoking Tobacco: Never Assessed Sex and Gender Information Value Date Recorded Sex Assigned at Not on file Gender Identity Not on file Sexual Orientation Not on file Plan of Treatment Health Maintenance Due Date Last Done Comments PAP SMEAR 1987 HIV SCREENING 2002 HEPATITIS C SCREENING 06/18/2005 DTAP/TDAP/TD VACCINES (1 - Tdap) 2006 HEPATITIS B VACCINE (1 of 3 - 19+ 3-dose series) 2006 COVID-19 VACCINE (1 - 2023-2 5 season) 2024 INFLUENZA VACCINE (#1) 2024 DEPRESSION SCREENING 10/17/2024 ZOSTER VACCINE (1 of 2) 2037 HIB VACCINE Aged Out No longer eligi ble based on patient's age to complete this topic HPV VACCINE Aged Out No longer eligi ble based on patient's age to complete this topic MENINGOCOCCAL (Group B) VACCINE Aged Out No longer eligible based on patient's age to complete this topic MENINGOCOCCAL VACCINE Aged Out No jessie deven eligible based on patient's age to complete this topic PNEUMOCOCCAL VACCINE Aged Out No long er eligible based on patient's age to complete this topic
--- OUTSIDE RECORDS SUMMARY | 2024-11-19 08:12 | XMS_ITS | Clinical Summary ---
Author Organization [facility] Address [address] [place] [address] Phone Care Team Providers Care Clinical Unit Educator Name Role Phone Faina Pete MD Primary Care Provider [phone] Allergies Active Allergy Reactions Criticality Noted Date Comments Neuromuscular Blockers, Steroidal Anxiety Low Medications buPROPion HCl (WELLBUTRIN XL) 300 mg Extended Release 24 hour tablet TK 1 T PO QAM 09/10/2019 Active xryz-pxctgda-E- J-[id number]-[id number]-onkg-cmxa 150 mg iron-1 mg-500 mg Tablet Take 1 Each by mouth daily. Active naproxen (NAPROSYN) 500 mg tabletIndicatio ns:Chronic left hip pain Take 1 Tablet (500 mg) by mouth 2 times daily with meals. 60 Tablet 1 10/31/2019 Active ALPRAZolam (Xanax) 0.25 mg tabletIndicatio ns:Generalized anxiety disorder Take 1 Tablet (0.25 mg) by mouth 3 times daily as needed for Anxiety. 30 Tablet 04/21/2020 Active sertraline (ZOLOFT) 100 mg tabletIndicatio ns:Generalized anxiety disorder TAKE 2 TABLETS DAILY 180 Tablet 3 05/19/2020 Active Active Problems Problem Noted Date Diagnosed Date Generalized anxiety disorder 01/23/2013 Immunizations Immunization Administration Dates Next Due (ADACEL/BOOSTRIX)(10 YR UP) TDAP VACCINE, 0.5ML, IM 12/18/2016 INFLUENZA VACCINE QUADRIVALENT 3 YR UP PF IM Family History Medical History Relation Name Comments Hypertension Mother Relation Name Status Comments Mother Social History Tobacco Use Types Packs/Day Years Used Date Smoking Tobacco: Former Smokeless Tobacco: Never Comments:Was a passive smoke r, quit 2011. 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 Pulse 100 10/31/2019 10:36 AM 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 Temperature 36.4 ??C (97.6 ??F) 10/31/2019 10:[address] Respiratory Rate 16 11/04/2015 4:33 PM 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 Oxygen Saturation 98% 10/31/2019 10:36 AM 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 Inhaled Oxygen Concentration - - Weight 6.804 kg (15 lb) 10/31/2019 10:36 AM 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 Height 175.3 cm (5' 9 ) 10/31/2019 10:36 AM 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 Body Mass Index 2.22 10/31/2019 10:36 AM 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 Plan of Treatment Health Maintenance Due Date Last Done Comments HEPATITIS B VACCINES (1 of 3 - 19+ 3-dose series) 2006 CERVICAL CANCER SCREENING 2017 INFLUENZA VACCINE (#1) 2024 08/02/2017 Preventative Visit- Commercial 10/17/2024 07/04/2015 DTAP/TDAP/TD VACCINES (2 - T d or Tdap) 12/18/2026 12/18/2016 HPV VACCINES Aged Out No longer eligi ble based on patient's age to complete this topic PNEUMOCOCCAL VACCINE 0-64 YEARS Aged Out No longer eligible based on patient's age to complete this topic Insurance [facility] OPEN ACCESS HMO [employer] OPEN [employer]ESS [employer] H[employer] Care Teams Clinical Unit Educator Relationship Specialty Start Date End Date Faina Pete MD PCP - General Internal Medicine 03/22/13
[2024-11-19 08:45] VITALS: BP 115/79; PULSE 90; RESP 16; TEMP 37.1; O2SAT 100
[2024-11-19] MEDS: LACTATED RINGERS 1,000 ML 150 ML IV CONT (08:50)
--- NOTE | 2024-11-19 09:24 | WPDHPUPDATE1 ---
History and Physical Update Update Date/Time: 11/19/24 09:24 History and Physical has been reviewed, including an updated exam of the patient. There are NO changes in the patient's condition. Risks, benefits, and alternatives have been discussed and questions answered. Patient agrees to proceed with procedure.
[2024-11-19 09:45] VITALS: BP 97/72; PULSE 87; RESP 16; O2SAT 99
--- NOTE | 2024-11-19 09:52 | WPDANESPN ---
Anes - Prog Note Post-Op Date/Time: 11/19/24 09:52 Cardiovascular status: normal Respiratory status: normal Airway patency: baseline Mental status: baseline Post-Op hydration status: normal Vital Signs: Last Vital Signs Temp 37.1 C 11/19/24 08:45 Pulse 87 11/19/24 09:45 Resp 16 11/19/24 09:45 BP 97/72 L 11/19/24 09:45 Pulse Ox 99 11/19/24 09:45 O2 Del Method Room Air 11/19/24 09:45 Pain Score (VAS): 0 I/O: Intake & Output 11/18/24 11/19/24 11/19/24 23:59 07:59 15:59 Intake Total 200 Balance 200 Post-procedural complaints: none Patient Feedback: Patient satisfied with anesthetic care. Other Findings: Patient vital signs back to baseline. Patient denies nausea and vomiting. Patient's pain under control. Patient OK for discharge.
[2024-11-19 09:55] VITALS: BP 100/73; PULSE 71; RESP 18; O2SAT 100
[2024-11-19 10:05] VITALS: BP 104/69; PULSE 73; RESP 16; O2SAT 100
== END 2024-11-19 10:32 ==
PROVIDERS: PCP Physician Assistant; Visit Provider Surgery
PROC: 0DJ08ZZ Inspection of Upper Intestinal Tract, Via Natural or Artificial Opening Endoscopic (ICD-10-PCS; CPT 43239; principal; 2024-11-19 09:30)
DX: K29.70 Gastritis, unspecified, without bleeding (principal); K21.00 Gastro-esophageal reflux disease with esophagitis, without bleeding
CPT/HCPCS: 43239